=== PATIENT | female | born 1975 | race Caucasian/White ===

== ENCOUNTER 2021-06-24 09:12 | Outpatient (REF) | payer OTHER, SELFPAY ==
[2021-06-24 11:41] LABS: Appearance Urine HAZY; Color Urine YELLOW; Glucose Urine UA NEG (NEG); Leukocyte Esterase Urine NEG (NEG); Nitrite Urine NEG (NEG); Urine Blood TRACE (NEG); Urine Ketones NEG (NEG); Urine Protein NEG (NEG-TRACE)
[2021-06-24 11:51] LABS: Estimated Average Glucose 103 mg/dL; Hemoglobin A1c % 5.2 %
[2021-06-24 11:57] LABS: Hematocrit 38.7 % (37.0-47.0); Hemoglobin 12.3 g/dl (12.0-16.0); Mean Corpuscular HGB Conc 31.8 g/dl (31.0-35.0); Mean Corpuscular Hemoglobin 27.6 pg (27.0-33.0); Mean Platelet Volume 10.7 fL (9.4-12.3); Platelet Count 205 X10*3/uL (160-400); Red Blood Count 4.45 X10*6/uL (4.20-5.50); Red Cell Distribution Width 14.1 % (11.0-16.0); White Blood Count 5.7 X10*3/uL (4.8-10.8)
[2021-06-24 12:10] LABS: Alanine Aminotransferase 17 U/L (0-31); Albumin Level 4.2 g/dL (3.5-5.0); Alkaline Phosphatase 69 U/L (39-117); Anion Gap 15 (12-20); Aspartate Amino Transferase 16 U/L (5-31); Bilirubin Total 0.6 mg/dL (0.0-1.0); Blood Urea Nitrogen 13 mg/dL (9-16); Carbon Dioxide 24 mmol/L (22-29); Chloride 104 mmol/L (96-108); Cholesterol 148 mg/dL; Estimated Glomerular Filt Rate > 60; Glucose Fasting 127 mg/dL (60-99); HDL Cholesterol 46 mg/dL; LDL Cholesterol Calculated 78 mg/dl; Potassium 4.2 mmol/L (3.3-5.1); Sodium 139 mmol/L (135-145); Total Protein 7.3 g/dL (6.5-8.0); Triglycerides 120 mg/dL
[2021-06-24 12:47] LABS: Mucus Urine 2+ /LPF; Squamous Epithelial Cell Urine 2+ /LPF
[2021-06-24 12:48] LABS: WBC Urine 0 /HPF (0-4)
== END 2021-06-24 09:13 | disposition home or self-care (01) ==
LOC: HO.HMGCLDS 09:12
PROVIDERS: PCP Internal Medicine; Visit Provider Internal Medicine
DX: Z00.00 Encounter for general adult medical examination without abnormal findings (principal); R73.9 Hyperglycemia, unspecified
CPT/HCPCS: 36415; 80053; 80061; 81001; 83036; 84443; 84481; 85027

== ENCOUNTER → 2021-11-24 11:00 | Outpatient (REF) | payer OTHER, SELFPAY | LOC: HO.SL 11:00 | PROVIDERS: PCP Internal Medicine; Visit Provider Nurse Practitioner Family | DX: G47.30 Sleep apnea, unspecified (principal); R40.0 Somnolence; R06.83 Snoring | CPT/HCPCS: 95806 ==

== ENCOUNTER 2021-12-26 11:55 | Outpatient (REF) | payer OTHER, SELFPAY ==
[2021-12-26 14:16] LABS: Estimated Average Glucose 111 mg/dL; Hemoglobin A1c % 5.5 %
[2021-12-26 14:17] LABS: Alanine Aminotransferase 16 U/L (0-31); Albumin Level 4.3 g/dL (3.5-5.0); Alkaline Phosphatase 77 U/L (39-117); Anion Gap 15 (12-20); Aspartate Amino Transferase 19 U/L (5-31); Bilirubin Total 0.5 mg/dL (0.0-1.0); Blood Urea Nitrogen 12 mg/dL (9-16); Calcium 8.9 mg/dL (8.4-10.2); Carbon Dioxide 24 mmol/L (22-29); Chloride 105 mmol/L (96-108); Estimated Glomerular Filt Rate > 60; Glucose Random 87 mg/dL (60-115); Potassium 4.4 mmol/L (3.3-5.1); Sodium 140 mmol/L (135-145); Total Protein 7.5 g/dL (6.5-8.0)
== END 2021-12-26 11:56 | disposition home or self-care (01) ==
LOC: HO.HMGCLDS 11:55
PROVIDERS: PCP Internal Medicine; Visit Provider Internal Medicine
DX: E28.2 Polycystic ovarian syndrome (principal); R73.9 Hyperglycemia, unspecified
CPT/HCPCS: 36415; 80053; 83036

== ENCOUNTER → 2022-02-17 20:30 | Outpatient (REF) | payer OTHER, SELFPAY | LOC: HO.SL 20:30 | PROVIDERS: PCP Internal Medicine; Visit Provider Nurse Practitioner Family | DX: G47.30 Sleep apnea, unspecified (principal); R40.0 Somnolence; E66.9 Obesity, unspecified; R73.9 Hyperglycemia, unspecified | CPT/HCPCS: 95810 ==

== ENCOUNTER → 2022-04-17 19:30 | Outpatient (REF) | payer OTHER, SELFPAY | LOC: HO.SL 19:30 | PROVIDERS: PCP Internal Medicine; Visit Provider Nurse Practitioner Family | DX: Z13.89 Encounter for screening for other disorder (principal) ==

== ENCOUNTER 2022-06-24 09:16 | Outpatient (REF) | payer OTHER, SELFPAY ==
[2022-06-24 11:39] LABS: Appearance Urine Cloudy; Color Urine Orange; Glucose Urine UA Negative (Negative); Leukocyte Esterase Urine Small (1+) (Negative); Nitrite Urine Negative (Negative); PH 5.5 (5.0-9.0); Specific Gravity - Urine 1.025 (1.005-1.025); UMIC TRIGGER UA YES; Urine Blood Large (3+) (Negative); Urine Ketones Negative (Negative); Urine Protein 30 (1+) mg/dL (Neg-Trace)
[2022-06-24 11:48] LABS: Estimated Average Glucose 126 mg/dL
[2022-06-24 11:52] LABS: Bacteria Urine None Seen (None Seen); Hyaline Casts Urine 0-2 /LPF (0-2); RBC Urine >20 /HPF (0-2); Squamous Epithelial Cell Urine 0-2 /HPF (0-2)
[2022-06-24 12:18] LABS: Alanine Aminotransferase 32 U/L (0-31); Albumin Level 4.2 g/dL (3.5-5.0); Alkaline Phosphatase 74 U/L (39-117); Anion Gap 15 (12-20); Aspartate Amino Transferase 31 U/L (5-31); Bilirubin Total 0.7 mg/dL (0.0-1.0); Blood Urea Nitrogen 15 mg/dL (9-16); Calcium 8.7 mg/dL (8.4-10.2); Carbon Dioxide 23 mmol/L (22-29); Chloride 107 mmol/L (96-108); Cholesterol 148 mg/dL; Estimated Glomerular Filt Rate > 60; Glucose Fasting 145 mg/dL (60-99); HDL Cholesterol 40 mg/dL; LDL Cholesterol Calculated 83 mg/dl; Potassium 4.3 mmol/L (3.3-5.1); Sodium 141 mmol/L (135-145); TSH reflex Free T4 2.03 uIU/mL (0.32-4.0); Triglycerides 128 mg/dL
== END 2022-06-24 09:17 | disposition home or self-care (01) ==
LOC: HO.HMGCLDS 09:16
PROVIDERS: PCP Internal Medicine; Visit Provider Internal Medicine
DX: Z00.00 Encounter for general adult medical examination without abnormal findings (principal); R73.9 Hyperglycemia, unspecified; G47.30 Sleep apnea, unspecified; F41.9 Anxiety disorder, unspecified
CPT/HCPCS: 36415; 80053; 80061; 81001; 82306; 83036; 84443

== ENCOUNTER 2022-06-27 12:23 | Outpatient (REF) | payer OTHER, SELFPAY ==
[2022-06-27 13:42] LABS: Appearance Urine Clear; Color Urine Yellow; Glucose Urine UA Negative (Negative); Leukocyte Esterase Urine Trace (Negative); Nitrite Urine Negative (Negative); PH 5.5 (5.0-9.0); UMIC TRIGGER UACC YES; Urine Blood Moderate (2+) (Negative); Urine Ketones Negative (Negative); Urine Protein Negative (Neg-Trace)
[2022-06-27 13:44] LABS: Bacteria Urine Trace (None Seen); Hyaline Casts Urine 0-2 /LPF (0-2); WBC Urine 0-5 /HPF (0-5)
== END 2022-06-27 12:24 | disposition home or self-care (01) ==
LOC: HO.HMGCLDS 12:23
PROVIDERS: PCP Internal Medicine; Visit Provider Internal Medicine
DX: R31.29 Other microscopic hematuria (principal)
CPT/HCPCS: 81001

== ENCOUNTER 2022-07-06 11:03 | Outpatient (REF) | payer OTHER, SELFPAY ==
--- NOTE | ~2022-07-06 | US_ITS ---
EXAMINATION: US RETROPERITONEAL LIMITED (RENAL ONLY) CLINICAL INFORMATION: Other microscopic hematuria. COMPARISON: None available. TECHNIQUE: Real-time imaging of the kidneys. FINDINGS: RIGHT KIDNEY: Surgically absent. LEFT KIDNEY: 15.7 x 7.1 x 7.0 cm (SAG x AP x TRV). The kidney is normal in size, contour, and echogenicity. Renal cortical thickness is normal. No renal calculi or focal parenchymal lesions. Left renal pelviectasis without vicky hydronephrosis. US/US renal BI IMPRESSION: 1. Left renal pelviectasis without vicky hydronephrosis. 2. Right kidney is surgically absent.
== END 2022-07-06 11:04 | disposition home or self-care (01) ==
LOC: HO.HMGCX 11:03
PROVIDERS: PCP Internal Medicine; Visit Provider Internal Medicine
DX: R31.29 Other microscopic hematuria (principal)
CPT/HCPCS: 76775

== ENCOUNTER → 2022-07-28 10:57 | Outpatient (BNVA) | payer OTHER, SELFPAY | PROVIDERS: PCP Internal Medicine; Visit Provider Nurse Practitioner Family ==

== ENCOUNTER 2022-12-23 10:24 | Outpatient (AMB) | payer OTHER, SELFPAY ==
--- NOTE | 2022-12-23 10:38 | A.OFFPC_ITS ---
Vital Signs 12/23/22 10:39 Height 5 ft 3 in Weight 327 lb BMI 57.9 BP 118/68 Blood Pressure Location Rt brachial Position Sitting Pulse 90 Pulse Source Pulse Oximeter Pulse Oximetry (%) 98 Oxygen Delivery Method Room Air Intake Visit Reasons: PE Intake Note: Pt is here today for her PE Allergies Sulfa (Sulfonamide Antibiotics) Allergy (Unknown, Verified 12/23/22 10:39) rash all over body adhesive tape Allergy (Unknown, Uncoded 12/23/22 10:39) burn trent Erythromycin Allergy (Unknown, Uncoded 12/23/22 10:39) vomiting Medication List - Last Reconciled 12/23/22 by Angella Moreno MD citalopram 40 mg PO DAILY metformin ER 750 mg PO DAILY Tobacco use date assessed: 12/23/22 Dental Screening Dental Screen Date: 12/23/22 Did you have a dental visit in the last 12 months?: Yes Did you have a dental problem in the last 6 months where you did not have access to dental care?: No Was dental information given to patient?: Patient has dentist HPI PE HPI Details Pt presents for physical. She complains of nasal congestion, sore throat, green discharge, cough for 4 days. Pt used Albuterol inhaler with some relief. [facility] Medical History (Updated 12/23/22 @ 11:43 by Angella Moreno MD) Anxiety Overweight PCOS (polycystic ovarian syndrome) Sleep apnea Hyperglycemia Annual physical exam Family History Father No problems noted. Mother Breast cancer Social History Housing: House Patient Tobacco Use Status: Former Tobacco user (10 years ago ) Years Smoked: 3-4 years e-Cigarette/Vaping Use: Never Used Current occupational status: employed Cognitive needs: No Hearing needs: No Vision needs: Yes Questionnaire PHQ-9 Over the last 2 weeks, how often have you been bothered by any of the following problems? 1. Little interest or pleasure in doing things: several days 2. Feeling down, depressed, or hopeless: several days 3. Trouble falling or staying asleep, or sleeping too much: more than half the days 4. Feeling tired or having little energy: more than half the days 5. Poor appetite or overeating: several days 6. Feeling bad about yourself - or that you are a failure or have let yourself or your family down: more than half the days 7. Trouble concentrating on things, such as reading the newspaper or watching television: several days 8. Moving or speaking so slowly that other people could have noticed. Or the opposite - being so fidgety or restless that you have been moving around a lot more than usual: not at all 9. Thoughts that you would be better off or of hurting yourself in some way: not at all Total score: 10 Depression Screening Interpretation: Positive Depression Screening Done: Yes Source: Developed by Drs. Juan C Bah, Lucy Keith, Thomas Khan and colleagues, with an educational ammy from [employer]. Thrive Questionnaire Date Thrive assessed: 12/23/22 I am a: Patient What is your living situation today?: I have a steady place to live Within the past 12 months, did the food you bought not last and you didn't have the money to get more?: Never true Within the past 12 months, did you worry whether your food would run out before you got money to buy more?: Never true Do you have trouble paying for medicines?: No Do you have trouble getting transportation to medical appointments?: No Do you have trouble paying your heating and electricity bill?: No Do you have trouble taking care of your child, family member or friend?: No Do you have trouble with day-to-day activities such as bathing, preparing meals, shopping, managing finances, etc.?: No Are you currently unemployed and looking for a job?: No Are you interested in more education?: No AUDIT C Alcohol Use Questionnaire (AUDIT-C) 1. How often do you have a drink containing alcohol?: Never Total Score: 0 EFFIE-7 AMB Questionnaire EFFIE-7 Date EFFIE - 7 assessed: 12/23/22 Feeling nervous, anxious, or on edge: 1 = Several days Not being able to stop or control worryin = Several days Worrying too much about different things: 1 = Several days Trouble relaxin = Several days Being so restless that it is hard to sit still: 1 = Several days Becoming easily annoyed or irritable: 2 = More than half the days Feeling afraid as if something awful might happen: 1 = Several days Total EFFIE-7 score (0-4 normal; 5-9 mild; 10-14 moderate; 15-21 severe): 8 Source: Developed by Drs. Juan C Bah, Lucy Keith, Thomas Khan and colleagues, with an educational ammy from [employer]. Review of Systems Const All systems reviewed & are unremarkable except as noted in HPI and below Reports no additional complaints Eyes Reports no additional complaints ENT Reports no additional complaints Card Reports no additional complaints Resp Reports no additional complaints GI Reports no additional complaints Reports no additional complaints Physical exam (Primary Care) Vital Signs: Last Vital Signs Pulse 90 12/23/22 10:39 BP 118/68 12/23/22 10:39 Pulse Ox 98 12/23/22 10:39 Oxygen Delivery Method Room Air 12/23/22 10:39 BMI result Body Mass Index 57.9 Tobacco/Smoking Status: Tobacco use Status Tobacco use date assessed 12/23/22 12/23/22 10:43 Patient Tobacco Use Status Former Tobacco user (12/23/22 10:43 years ago ) e-Cigarette/Vaping Use Never Used 12/23/22 10:43 Depression Screening Interpretation: Positive Thrive Assessment: Date of Thrive Assessment Date Thrive assessed 12/23/22 12/23/22 10:43 Const General: no acute distress HENMT Head: Yes normal to inspection Ears: hearing grossly normal bilaterally General nose exam: Abnormal mucous membranes and turbinates present erythematous Face and sinus: Yes sinus tenderness Throat: Yes postnasal drainage Eyes General: appearance normal, both eyes and all related structures Neck Neck: Yes no lymphadenopathy and Yes supple Resp Effort & Inspection: normal respiratory effort Auscultation: clear to auscultation bilaterally Cardio Rhythm: regular rhythm Heart sounds: S1 normal heart sound present and S2 normal heart sound present GI Inspection: Yes normal to inspection Palpation (GI): Soft to palpation Percussion: Yes normal to percussion Auscultation: normal bowel sounds Assessment and Plan Assessment & Plan (1) Hx of colonoscopy: Comment: Lymch syndrome Dr. Granado 10/28 [facility], q 2 yrs Code(s): Z98.890 - Other specified postprocedural states (2) Normal pelvic exam: Comment: hand splitter 2022 Code(s): Z01.419 - Encounter for gynecological examination (general) (routine) without abnormal findings (3) Overweight: Code(s): E66.3 - Overweight Plan: Weight loss discussed with the patient (4) Sleep apnea: Comment: Severe degree of sleep apnea. The AHI was 106/hr and oxygen selma was 76%. Code(s): G47.30 - Sleep apnea, unspecified Plan: Continue CPAP (5) Hyperglycemia: Code(s): R73.9 - Hyperglycemia, unspecified Plan: Continue ADA diet return for fasting blood work (6) Annual physical exam: Code(s): Z00.00 - Encounter for general adult medical examination without abnormal findings Plan: Well-balanced diet regular physical activity stress management discussed with the patient. (7) Sinusitis: Code(s): J32.9 - Chronic sinusitis, unspecified Plan: Doxycycline is prescribed and supportive care discussed with the patient Orders: Orders Hemoglobin A1c 365 Days E66.3 - Overweight, R73.9 - Hyperglycemia, unspecified, Z00.00 - Encounter for general adult medical examination without abnormal findings Lipid Panel 365 Days E66.3 - Overweight, R73.9 - Hyperglycemia, unspecified, Z00.00 - Encounter for general adult medical examination without abnormal findings Complete Blood Count Auto Diff 365 Days E66.3 - Overweight, R73.9 - Hyperglycemia, unspecified, Z00.00 - Encounter for general adult medical examination without abnormal findings TSH reflex Free T4 365 Days E66.3 - Overweight, R73.9 - Hyperglycemia, unspecified, Z00.00 - Encounter for general adult medical examination without abnormal findings Comprehensive [place]. Panel Fast 365 Days E66.3 - Overweight, R73.9 - Hyperglycemia, unspecified, Z00.00 - Encounter for general adult medical examination without abnormal findings Medications: New doxycycline hyclate 100 mg PO BID 14 tabs 0RF albuterol sulfate 90 mcg/actuation 1 inh inhalation QID PRN 6.7 grams 0RF sh ortness of breath or wheezing Coding Level of Care Code Est Pt Prev Care 40-64y(24683) Diagnoses Hx of colonoscopy Z98.890 Normal pelvic exam Z01.419 Overweight E66.3 Sleep apnea G47.30 Hyperglycemia R73.9 Annual physical exam Z00.00 Sinusitis J32.9
[2022-12-23 10:39] VITALS: BP 118/68; PULSE 90; O2SAT 98; BMI 57.9
== END 2022-12-23 11:44 | disposition home or self-care (01) ==
PROVIDERS: Visit Provider Internal Medicine
DX: Z00.00 Encounter for general adult medical examination without abnormal findings (principal); Z98.890 Other specified postprocedural states; E66.3 Overweight; G47.30 Sleep apnea, unspecified; R73.9 Hyperglycemia, unspecified; J32.9 Chronic sinusitis, unspecified
CPT/HCPCS: 99396

== ENCOUNTER 2023-01-26 14:28 | Outpatient (AMB) | payer OTHER, SELFPAY ==
[2023-01-26 14:30] VITALS: BP 148/80; PULSE 86; O2SAT 99; BMI 58.5
--- NOTE | 2023-01-26 14:30 | A.OFFVIS_ITS ---
Intake Vital Signs 01/26/23 14:30 Height 5 ft 3 in Weight 330 lb 6 oz BMI 58.5 BP 148/80 H Blood Pressure Location Lt brachial Position Sitting Pulse 86 Pulse Source Pulse Oximeter Pulse Oximetry (%) 99 Oxygen Delivery Method Room Air Intake Visit Reasons: 6 mnts f/u for sleep - LVM Intake Note: Pt presents to the office today for a 6 month follow up for sleep. Pt states she is sleeping better through the night. Pt states she isnt waking up as often. Pt states it just takes a little while for her to fall asleep but she states her sleep has improved. Allergies Sulfa (Sulfonamide Antibiotics) Allergy (Unknown, Verified 01/26/23 14:32) rash all over body adhesive tape Allergy (Unknown, Uncoded 01/26/23 14:32) burn trent Erythromycin Allergy (Unknown, Uncoded 01/26/23 14:32) vomiting HPI HPI Comments History of Present Illness Details 47 y/o female patient presents for follo w up of AIYANA on CPAP. Pt reports she sleeps better with CPAP, less snoring, and rested. She wakes up refreshed, not congested since she had a new CPAP. Pt states that does not feel groggy, and less clenching her jaw. She clean her tubing and mask regularly and changes filter q 2 weeks. The CPAP compliance and therapy response (12/27/22-01/25/23) reviewed. She is on CPAP at [id number]. The usage days 100% and the average usage hours 7 hours and 38 min. The residual AHI was 0.5/hr. [facility] Medical History Anxiety Overweight PCOS (polycystic ovarian syndrome) Sleep apnea Hyperglycemia Annual physical exam Family History Father No problems noted. Mother Breast cancer (Updated 01/26/23 @ 14:32 by Roseanne Villavicencio MA) Housing: House Alcohol intake: never Patient Tobacco Use Status: Former Tobacco user (10 years ago ) Years Smoked: 3-4 years e-Cigarette/Vaping Use: Never Used Current occupational status: employed Cognitive needs: No Hearing needs: No Vision needs: Yes Review of Systems Const All systems reviewed & are unremarkable except as noted in HPI and below Physical Exam Vital Signs: Last Vital Signs Pulse 86 01/26/23 14:30 BP 148/80 H 01/26/23 14:30 Pulse Ox 99 01/26/23 14:30 Oxygen Delivery Method Room Air 01/26/23 14:30 BMI result Body Mass Index 58.5 Const General: cooperative and no acute distress Nutritional Appearance: obese Orientation/consciousness: patient oriented x3 Resp Effort & Inspection: normal respiratory effort and able to speak in complete sentences Neuro General: patient oriented x3, gait normal, moves all extremities, no focal motor deficits and CN's II-XI intact bilaterally Cognition (Neuro): normal cognition Assessment & Plan Assessment & Plan (1) Sleep apnea: Comment: Severe degree of sleep apnea. The AHI was 106/hr and oxygen selma was 76%. Code(s): G47.30 - Sleep apnea, unspecified Plan Continue to use CPAP at [id number] as patient experiences good clinical effects. Stressed compliance, use CPAP nightly and more than 4 hours. Wt reduction advised. Coding Level of Care Code Est Pt Level 3 (69006) Diagnoses Sleep apnea G47.30
== END 2023-01-26 14:47 | disposition home or self-care (01) ==
PROVIDERS: Visit Provider Nurse Practitioner Family
DX: G47.30 Sleep apnea, unspecified (principal)
CPT/HCPCS: 99213

== ENCOUNTER → 2023-01-26 14:28 | Outpatient (BNVA) | payer OTHER, SELFPAY | PROVIDERS: Visit Provider Nurse Practitioner Family ==

== ENCOUNTER 2023-02-04 09:26 | Outpatient (REF) | payer OTHER, SELFPAY ==
[2023-02-04 11:52] LABS: MANUAL DIFF FLAG NO
[2023-02-04 12:15] LABS: Basophils Absolute Auto 0.1 X10*3/uL (0.0-0.2); Basophils Percent Auto 0.9 % (0-2); Eosinophils Absolute Auto 0.2 X10*3/uL (0.0-0.4); Hematocrit 36.4 % (37.0-47.0); Hemoglobin 11.7 g/dl (12.0-16.0); Imm Gran Abs Auto 0.04 X10*3/uL (0.00-0.03); Imm Gran Pct Auto 0.7 % (0.0-0.4); Lymphocytes Absolute Auto 1.4 X10*3/uL (1.2-4.9); Lymphocytes Percent Auto 25.5 % (20-40); Mean Corpuscular HGB Conc 32.1 g/dl (31.0-35.0); Mean Corpuscular Hemoglobin 28.5 pg (27.0-33.0); Mean Corpuscular Volume 88.8 fL (80.0-98.0); Mean Platelet Volume 10.4 fL (9.4-12.3); Monocytes Absolute Auto 0.2 X10*3/uL (0.1-1.2); Monocytes Percent Auto 4.3 % (2-11); Neutrophils Absolute Auto 3.7 x10*3/uL (2.0-8.3); Neutrophils Percent Auto 65.6 % (45-73); Platelet Count 197 X10*3/uL (160-400); Red Cell Distribution Width 14.2 % (11.0-16.0); White Blood Count 5.6 X10*3/uL (4.8-10.8)
[2023-02-04 12:16] LABS: Estimated Average Glucose 137 mg/dL; Hemoglobin A1C 141.9686 umol/L; Hemoglobin A1c % 6.4 % (<6.0)
[2023-02-04 12:35] LABS: Alanine Aminotransferase 48 U/L (0-31); Alkaline Phosphatase 85 U/L (39-117); Anion Gap 13 (12-20); Aspartate Amino Transferase 88 U/L (5-31); Bilirubin Total 0.5 mg/dL (0.0-1.0); Blood Urea Nitrogen 12 mg/dL (9-16); Carbon Dioxide 26 mmol/L (22-29); Chloride 104 mmol/L (96-108); Cholesterol 151 mg/dL (<200); Estimated Glomerular Filt Rate > 60; Glucose Fasting 151 mg/dL (60-99); HDL Cholesterol 35 mg/dL (>40); LDL Cholesterol Calculated 90 mg/dL (<100); Potassium 4.2 mmol/L (3.3-5.1); Sodium 139 mmol/L (135-145); Total Protein 7.4 g/dL (6.5-8.0); Triglycerides 130 mg/dL (<150)
[2023-02-04 12:53] LABS: Creatinine Urine 141.83 mg/dL; Microalbum/Creatinine Ratio Ur 20.4 ug/mg cr (<30)
[2023-02-04 12:54] LABS: TSH reflex Free T4 2.77 uIU/mL (0.32-4.0)
== END 2023-02-04 09:27 | disposition home or self-care (01) ==
LOC: HO.HMGCLDS 09:26
PROVIDERS: PCP Internal Medicine; Visit Provider Internal Medicine
DX: Z00.00 Encounter for general adult medical examination without abnormal findings (principal); E28.2 Polycystic ovarian syndrome; R73.9 Hyperglycemia, unspecified
CPT/HCPCS: 36415; 80053; 80061; 82043; 82570; 83036; 84443; 85025

== ENCOUNTER 2024-01-14 09:54 | Outpatient (REF) | payer OTHER, SELFPAY ==
[2024-01-14 13:14] LABS: MANUAL DIFF FLAG NO
[2024-01-14 13:17] LABS: Basophils Absolute Auto 0.1 X10*3/uL (0.0-0.2); Basophils Percent Auto 0.9 % (0-2); Eosinophils Absolute Auto 0.2 X10*3/uL (0.0-0.4); Eosinophils Percent Auto 2.7 % (0-4); Hematocrit 36.3 % (37.0-47.0); Hemoglobin 11.8 g/dl (12.0-16.0); Imm Gran Abs Auto 0.02 X10*3/uL (0.00-0.03); Imm Gran Pct Auto 0.3 % (0.0-0.4); Lymphocytes Absolute Auto 2.1 X10*3/uL (1.2-4.9); Lymphocytes Percent Auto 35.9 % (20-40); Mean Corpuscular HGB Conc 32.5 g/dl (31.0-35.0); Mean Corpuscular Volume 86.2 fL (80.0-98.0); Monocytes Absolute Auto 0.2 X10*3/uL (0.1-1.2); Monocytes Percent Auto 3.2 % (2-11); Neutrophils Absolute Auto 3.3 x10*3/uL (2.0-8.3); Platelet Count 199 X10*3/uL (160-400); Red Blood Count 4.21 X10*6/uL (4.20-5.50); Red Cell Distribution Width 14.1 % (11.0-16.0); White Blood Count 5.9 X10*3/uL (4.8-10.8)
[2024-01-14 13:32] LABS: Estimated Average Glucose 160 mg/dL; Hemoglobin A1C 179.5133 umol/L; Hemoglobin A1c % 7.2 % (<6.0); Total Hemoglobin (HGBA1C) 3227.8621 umol/L
[2024-01-14 13:42] LABS: Anion Gap 13 (12-20)
[2024-01-14 13:53] LABS: Alanine Aminotransferase 67 U/L (0-31); Albumin Level 4.2 g/dL (3.5-5.0); Alkaline Phosphatase 115 U/L (39-117); Aspartate Amino Transferase 114 U/L (5-31); Bilirubin Total 0.6 mg/dL (0.0-1.0); Blood Urea Nitrogen 9 mg/dL (9-16); Calcium 9.2 mg/dL (8.4-10.2); Carbon Dioxide 25 mmol/L (22-29); Chloride 107 mmol/L (96-108); Cholesterol 186 mg/dL (<200); Estimated Glomerular Filt Rate > 60; Glucose Fasting 145 mg/dL (60-99); HDL Cholesterol 38 mg/dL (>40); LDL Cholesterol Calculated 117 mg/dL (<100); Potassium 4.2 mmol/L (3.3-5.1); Sodium 141 mmol/L (135-145); Total Protein 7.7 g/dL (6.5-8.0); Triglycerides 157 mg/dL (<150)
[2024-01-14 14:41] LABS: TSH reflex Free T4 2.53 uIU/mL (0.32-4.0)
== END 2024-01-14 09:55 | disposition home or self-care (01) ==
LOC: HO.HMGCLDS 09:54
PROVIDERS: PCP Internal Medicine; Visit Provider Internal Medicine
DX: Z00.00 Encounter for general adult medical examination without abnormal findings (principal); E66.3 Overweight; R73.9 Hyperglycemia, unspecified
CPT/HCPCS: 36415; 80053; 80061; 83036; 84443; 85025

== ENCOUNTER 2024-01-17 08:31 | Outpatient (AMB) | payer OTHER, SELFPAY ==
[2024-01-17 08:38] VITALS: BP 122/70; PULSE 70; O2SAT 97; BMI 57.0
--- NOTE | 2024-01-17 08:38 | A.OFFPC_ITS ---
Vital Signs 01/17/24 08:38 Height 5 ft 3 in Weight 322 lb BMI 57.0 BP 122/70 Blood Pressure Location Lt brachial Position Sitting Pulse 70 Pulse Source Pulse Oximeter Pulse Oximetry (%) 97 Oxygen Delivery Method Room Air Intake Visit Reasons: Annual PE Intake Note: Pt is here today for PE. Allergies Sulfa (Sulfonamide Antibiotics) Allergy (Unknown, Verified 01/17/24 08:40) rash all over body adhesive tape Allergy (Unknown, Uncoded 01/17/24 08:40) burn trent Erythromycin Allergy (Unknown, Uncoded 01/17/24 08:40) vomiting Medication List - Last Reconciled 01/17/24 by Angella Moreno MD albuterol sulfate 90 mcg/actuation 1 inh inhalation QID PRN citalopram 40 mg PO DAILY metformin ER 750 mg PO DAILY Tobacco use date assessed: 01/17/24 Dental Screening Dental Screen Date: 01/17/24 Did you have a dental visit in the last 12 months?: Yes Did you have a dental problem in the last 6 months where you did not have access to dental care?: No Was dental information given to patient?: Patient has dentist HPI Annual PE HPI Details Pt presents for PE. PFSH Medical History (Updated 01/17/24 @ 08:50 by Angella Moreno MD) Anxiety Overweight PCOS (polycystic ovarian syndrome) Sleep apnea Hyperglycemia Annual physical exam Surgical History (Updated 01/17/24 @ 08:43 by Amy Salcido [facility]) Hx of section Hx of kidney removal History of repair of ACL Family History Father No problems noted. Mother Breast cancer Social History Housing: House Alcohol intake: never Patient Tobacco Use Status: Former Tobacco user (10 years ago ) Years Smoked: 3-4 years e-Cigarette/Vaping Use: Never Used service: No Current occupational status: employed Cognitive needs: No Hearing needs: No Vision needs: Yes Questionnaire PHQ-9 Over the last 2 weeks, how often have you been bothered by any of the following problems? 1. Little interest or pleasure in doing things: several days 2. Feeling down, depressed, or hopeless: several days 3. Trouble falling or staying asleep, or sleeping too much: several days 4. Feeling tired or having little energy: several days 5. Poor appetite or overeating: several days 6. Feeling bad about yourself - or that you are a failure or have let yourself or your family down: several days 7. Trouble concentrating on things, such as reading the newspaper or watching television: not at all 8. Moving or speaking so slowly that other people could have noticed. Or the opposite - being so fidgety or restless that you have been moving around a lot more than usual: not at all 9. Thoughts that you would be better off or of hurting yourself in some way: not at all Total score: 6 Depression Screening Interpretation: Negative Depression Screening Done: Yes [id number] - PHQ-9 Billing: Yes Source: Developed by Drs. Juan C Bah, Lucy Keith, Thomas Khan and colleagues, with an educational ammy from [employer]. Thrive Questionnaire Date Thrive assessed: 01/17/24 I am a: Patient What is your living situation today?: I have a steady place to live Within the past 12 months, did the food you bought not last and you didn't have the money to get more?: Never true Within the past 12 months, did you worry whether your food would run out before you got money to buy more?: Never true Do you have trouble paying for medicines?: No Do you have trouble getting transportation to medical appointments?: No Do you have trouble paying your heating and electricity bill?: No Do you have trouble taking care of your child, family member or friend?: No Do you have trouble with day-to-day activities such as bathing, preparing meals, shopping, managing finances, etc.?: No Are you currently unemployed and looking for a job?: No Are you interested in more education?: No Please select the resources that you would like help with: None Currently or been in a relationship where the following occur: No concerns repo rted THRIVE Score: 0 AUDIT C Alcohol Use Questionnaire (AUDIT-C) 1. How often do you have a drink containing alcohol?: Never 3. How often do you have six or more drinks on one occasion?: Never Total Score: 0 EFFIE-7 AMB Questionnaire EFFIE-7 Date EFFIE - 7 assessed: 01/17/24 Feeling nervous, anxious, or on edge: 1 = Several days Not being able to stop or control worryin = Several days Worrying too much about different things: 1 = Several days Trouble relaxin = Several days Being so restless that it is hard to sit still: 0 = Not at all Becoming easily annoyed or irritable: 1 = Several days Feeling afraid as if something awful might happen: 0 = Not at all Total EFFIE-7 score (0-4 normal; 5-9 mild; 10-14 moderate; 15-21 severe): 5 Source: Developed by Drs. Juan C Bah, Lucy Keith, Thomas Khan and colleagues, with an educational ammy from [employer]. EFFIE-7 Assessment Billing EFFIE-7 Assessment Tool: EFFIE-7 Assessment 37168 Review of Systems Const All systems reviewed & are unremarkable except as noted in HPI and below Eyes Reports no additional complaints ENT Reports no additional complaints Card Reports no additional complaints Resp Reports no additional complaints GI Reports no additional complaints Reports no additional complaints Physical exam (Primary Care) Vital Signs: Last Vital Signs Pulse 70 01/17/24 08:38 BP 122/70 01/17/24 08:38 Pulse Ox 97 01/17/24 08:38 Oxygen Delivery Method Room Air 01/17/24 08:38 BMI result Body Mass Index 57.0 Tobacco/Smoking Status: Tobacco use Status Tobacco use date assessed 01/17/24 01/17/24 08:44 Patient Tobacco Use Status Former Tobacco user (01/17/24 08:44 years ago ) e-Cigarette/Vaping Use Never Used 01/17/24 08:44 PHQ-9: PHQ-9 Score PHQ-9: Total score 6 01/17/24 08:44 Depression Screening Interpretation: Negative Thrive Assessment: Date of Thrive Assessment Date Thrive assessed 01/17/24 01/17/24 08:44 Currently or been in a relationship where the following occur: No concerns reported Const General: no acute distress HENMT Head: Yes normal to inspection Ears: hearing grossly normal bilaterally General nose exam: Normal external nose present Face and sinus: Yes normal facial exam Throat: Yes posterior oropharynx normal Eyes General: appearance normal, both eyes and all related structures Neck Neck: Yes no lymphadenopathy and Yes supple Resp Effort & Inspection: normal respiratory effort Auscultation: clear to auscultation bilaterally Cardio Rhythm: regular rhythm Heart sounds: S1 normal heart sound present and S2 normal heart sound present GI Inspection: Yes normal to inspection Palpation (GI): Soft to palpation Percussion: Yes normal to percussion Auscultation: normal bowel sounds Coding Level of Care Code Est Pt Prev Care 40-64y(85137) Diagnoses Hx of colonoscopy Z98.890 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 Code(s): Z15.09 - Genetic susceptibility to other malignant neoplasm Category: Medical Plan: f/u with oncology (3) Hyperglycemia: Code(s): R73.9 - Hyperglycemia, unspecified Category: Medical Plan: A1C is 7.3, ADA diet, regular exercise, weight loss discussed, increase Metformi n to 1500 mg, f/u in 3 months (4) Annual physical exam: Code(s): Z00.00 - Encounter for general adult medical examination without abnormal findi ngs Category: Medical Plan: well baalnced diet, regular exercise discussed, pt is up to date with mammogram, colonoscopy and pap (5) Hx of screening mammography: Comment: 2023 Code(s): Z92.89 - Personal history of other medical treatment Category: Medical Plan: up to date Orders: Orders Comprehensive [place]. Panel Fast 3 Months R73.9 - Hyperglycemia, unspecified, Z00.00 - Encounter for general adult medical examination without abnormal findings Microalbumin, Random (w Creat) 3 Months R73.9 - Hyperglycemia, unspecified, Z00.00 - Encounter for general adult medical examination without abnormal findings TSH reflex Free T4 3 Months R73.9 - Hyperglycemia, unspecified, Z00.00 - Encounter for general adult medical examination without abnormal findings Hemoglobin A1c 3 Months R73.9 - Hyperglycemia, unspecified, Z00.00 - Encounter for general adult medical examination without abnormal findings Lipid Panel 3 Months R73.9 - Hyperglycemia, unspecified, Z00.00 - Encounter for general adult medical examination without abnormal findings Complete Blood Count Auto Diff 3 Months R73.9 - Hyperglycemia, unspecified, Z00.00 - Encounter for general adult medical examination without abnormal findings Medications: Refilled metformin ER 750 mg PO DAILY 180 tabs 3RF
== END 2024-01-17 09:03 | disposition home or self-care (01) ==
PROVIDERS: PCP Internal Medicine; Visit Provider Internal Medicine
DX: Z98.890 Other specified postprocedural states (principal); Z15.09 Genetic susceptibility to other malignant neoplasm; R73.9 Hyperglycemia, unspecified; Z00.00 Encounter for general adult medical examination without abnormal findings; Z92.89 Personal history of other medical treatment

== ENCOUNTER → 2024-01-17 08:31 | Outpatient (BNVA) | payer OTHER, SELFPAY | PROVIDERS: PCP Internal Medicine; Visit Provider Internal Medicine | DX: Z00.00 Encounter for general adult medical examination without abnormal findings (principal); R73.9 Hyperglycemia, unspecified; Z15.09 Genetic susceptibility to other malignant neoplasm | CPT/HCPCS: 96127 ==

== ENCOUNTER 2024-02-01 15:20 | Outpatient (AMB) | payer OTHER, SELFPAY ==
--- NOTE | 2024-02-01 15:21 | MHC.OFFVIS ---
Vital Signs 02/01/24 15:22 Height 5 ft 3 in Weight 322 lb BMI 57.0 Intake Visit Reasons: 1 yr f/u -AIYANA Intake Note: Patient presents for follow up Allergies Sulfa (Sulfonamide Antibiotics) Allergy (Unknown, Verified 02/01/24 15:27) rash all over body adhesive tape Allergy (Unknown, Uncoded 02/01/24 15:27) burn trent Erythromycin Allergy (Unknown, Uncoded 02/01/24 15:27) vomiting HPI Comments Details: 47 y/o female patient presents for follow up of AIYANA on CPAP. Pt reports she sleeps better with CPAP, less snoring, and rested. She wakes up refreshed, congested at times depends on the weather. Pt states that does not feel groggy, and less clenching her jaw. She clean her tubing and mask regularly and changes filter q 2 weeks. The CPAP compliance and therapy response (11/03/23-01/30/2024) reviewed. She is on CPAP at [id number]. The usage days 100% and the average usage hours 7 hours and 31 min. The residual AHI was 0.6/hr. Restless leg syndrome, but usually able to fall asleep in about 20 min. Gets up 1-2x a night. A1c is 7.1 PcP increased Metformin to 1500mg PO daily. Mood is good sometimes anxious when kids get sick. Good support network locally with family and is looking for a therapist. 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 [facility] Medical History Anxiety Overweight PCOS (polycystic ovarian syndrome) Sleep apnea Hyperglycemia Annual physical exam Surgical History Hx of section Hx of kidney removal History of repair of ACL Family History Father No problems noted. Mother Breast cancer Social History Housing: House Alcohol intake: never Patient Tobacco Use Status: Former Tobacco user (10 years ago ) Years Smoked: 3-4 years e-Cigarette/Vaping Use: Never Used service: No Current occupational status: employed Cognitive needs: No Hearing needs: No Vision needs: Yes Review of Systems Const All systems reviewed & are unremarkable except as noted in HPI and below ENT Reports Normal hearing present Neuro Reports Normal hearing present and Reports Abnormal speech present Physical Exam Vital Signs: BMI result Body Mass Index 57.0 Const General: cooperative, comfortable and no acute distress Nutritional Appearance: obese (BMI 54) morbidly obese Orientation/consciousness: patient oriented x3 Eyes Pupils: Equal, round and reactive pupils present Resp Effort & Inspection: normal respiratory effort and able to speak in complete sentences Neuro General: patient oriented x3 Cranial nerves: Yes CN's II-XII intact bilaterally, Yes Facial sensation intact/muscles of mastication intact, Yes Equal, round and reactive pupils present, Yes Normal accommodation reflex present, Yes Nystagmus not present, Yes Normal facial strength present, Yes Midline tongue present, Yes Symmetric palate elevation present, Yes Normal hearing present, Yes Ability to bilaterally rotate head present and Yes Ability to bilaterally elevate shoulders present Cognition (Neuro): normal cognition Speech: Abnormal speech present Gait exam (Neuro): Normal gait present Motor exam (neuro): 5/5 motor strength present throughout, Pronator motor function not present and Normal motor muscle tone present throughout Deep tendon reflexes (DTR's): Right triceps reflex intensity grade: 2+, Left triceps reflex intensity grade: 2+, Rt Biceps (C5, C6): 2+, Left biceps reflex intensity grade: 2+, Right brachioradialis reflex intensity grade: 2+, Left brachioradialis reflex intensity grade: 2+, Right patellar reflex intensity grade: 2+ and Left patellar reflex intensity grade: 2+ Coordination: [id number] test normal Results Reviewed Results Reviewed: October 2023 to Jan 2024 CPAP compliance >4 hours average 100%, Average hours per night 7hours and 31 min Auto Set -Pressures [id number], Leaks / min max 6.4, AHI is 0.6 Assessment & Plan Assessment & Plan (1) Anxiety: Code(s): F41.9 - Anxiety disorder, unspecified Category: Medical (2) Overweight: Code(s): E66.3 - Overweight Category: Medical (3) Sleep apnea: Comment: Severe degree of sleep apnea. The AHI was 106/hr and oxygen selma was 76%. Code(s): G47.30 - Sleep apnea, unspecified Category: Medical Qualifiers: Sleep apnea type: obstructive Qualified Code(s): G47.33 - Obstructive sleep apnea (adult) (pediatric) Plan Patient is advised to use CPAP daily and even when she is napping. BMI is 54 Encouraged patient to engage in daily exercise for weight reduction. Fish Tender/Fire Suppression Captain referral if interested in dietary caloric intake and meal planning. DASH Diet for Hypertension, per [employer] Association #1 modifiable risk factor to prevent heart attacks is blood pressure control. Refer to: www.https//[employer].diet Mediterranean Diet- Cardiovascular Risk reduction, weight loss, and control of Type 2 diabetes mellitus. Blood Glucose Monitoring, A1C control for prevention of diabetes, nephropathy, neuropathy, retinopathy. Coding Level of Care Code Est Pt Level 3 (64475) Diagnoses Anxiety F41.9 Overweight E66.3 Obstructive sleep apnea syndrome G47.33 Sleep apnea type: obstructive
[2024-02-01 15:22] VITALS: BMI 57.0
== END 2024-02-01 15:51 | disposition home or self-care (01) ==
PROVIDERS: Absent Provider Psychiatry & Neurology Neurology; PCP Internal Medicine; Visit Provider Physician Assistant Medical
DX: G47.33 Obstructive sleep apnea (adult) (pediatric) (principal); F41.9 Anxiety disorder, unspecified; E66.3 Overweight
CPT/HCPCS: 99213

== ENCOUNTER → 2024-02-01 15:20 | Outpatient (BNVA) | payer OTHER, SELFPAY | PROVIDERS: Absent Provider Psychiatry & Neurology Neurology; PCP Internal Medicine; Visit Provider Physician Assistant Medical ==

== ENCOUNTER 2024-04-20 08:06 | Outpatient (REF) | payer OTHER, SELFPAY ==
--- OUTSIDE RECORDS SUMMARY | 2024-04-20 08:10 | XMS_ITS | Continuity of Care Document ---
Author Organization [facility] ter Address [address] [place] [id number]- Care Team Providers Care Manager Creative Name Role Phone Angella Moreno MD Primary Care Physician [phone] [id number] Date(s): 04/15/24 - 04/16/[address] [address]- Encounter Diagnosis Abdominal pain(Final) - 04/16/24 Discharge Disposition: A-D/C Home Attending Physician: Zan Patterson MD Admitting Physician: Zan Patterson MD Referring Physician: Not on Staff, Referring MD Encounter Type: Disch ES Allergies, Adverse Reactions, Alerts Substance Criticality Severity Reaction Reaction Severity Status erythromycin Active Bactrim Active Adhesive Bandage Act smiley Medications citalopram 40 mg oral tablet 90 each, TAKE 1 TABLET BY MOUTH EVERY DAY, 0 Refills, 03/12/22 2:02:00 PM EST, Partial fill upon patient request if the prescription is for a schedule II opioid drug. Start Date: 03/12/22 Status: Ordered Repeat number: 1 famotidine 20 mg oral tablet 20 mg, 1, tablet, By Mouth, 2 times a day, # 180 tablet, Refills 0, Tot. Refills 0, Maintenance, 04/16/24 12:12:00 AM EST, Route to Pharmacy Electronically, [facility]/pharmacy #[id number], Partial fill upon patient request if the prescription is for a schedule II opioid drug., 160, cm, 04/15/24 21:57:00 EST, Height, 143.5, kg, 04/15/24 21:57:00 EST, Dry Weight Start Date: 04/16/24 Status: Ordered Quantity: 180.0 Unit: tablet Repeat number: 1 metFORMIN 750 mg oral tablet, extended release 1 tablet = 750 mg, By Mouth, Daily, # 30 tablet, 0 Refills, Maintenance, 10/21/23 1:55:00 PM EDT, ERTablet, Partial fill upon patient request if the prescription is for a schedule II opioid drug. Start Date: 10/21/23 Status: Ordered Quantity: 30.0 Unit: tablet Repeat number: 1 Problem List Condition Confirmation Course Effective Dates Status Health St atus Informant Elderly multigravida Confirmed Active Deep vein thrombosis Confirmed Active Depression Confirmed Active Female infertility associated with anovulation Confirmed Active Gestational diabetes Confirmed Active History of DVT (deep vein thrombosis) Confirmed Active Hirsutism Confirmed Active Adams syndrome Confirmed Active Obesity, Class III, BMI 40-49.9 (morbid obesity) Confirmed Active PCOS (polycystic ovarian syndrome) Confirmed Active Severe obesity Confirmed Active Sleep apnea Confirmed Active Results Radiology Reports * Exam Date Time Procedure Performing Provider Status 04/15/24 11:[address] Abd/Pelvis W/ IV Contrast Only Stup ak , Pawan; Auth (Verified) Notes: (CT Abd/Pelvis W/ IV Contrast Only) Reason For Exam: LLQ abdominal pain;Other: RESULT: CT Abd/Pelvis W/ IV Contrast Only CT Abd/Pelvis W/ IV Contrast Only Hx of Present Illness: onset 2 hours ago, bilateral lower knifelike abd pain rad to back, no fever chills, nausea w o vomiting diarrhea, no dysuria, LMP now, no vag discharge,; Reason: Other:; LLQ abdominal pain; Clinical Question(s): Diverticulitis; Order Comment: TECHNIQUE: Spiral CT through the abdomen and pelvis with IV contrast formatted in 3 planes. 100 cc of Isovue 300 was administered intravenously. This study was performed without oral contrast. Weight-based protocol using automatic tube modulation was used to optimize exposure parameters. CTDIvol Body: 37.80 mGy, DLP Body: 2173 mGy*cm. COMPARISON: None. FINDINGS: Audiovisual Aids Technician View Findings, Lines and Tubes: None. Visualized Chest: Lung bases are clear. No pleural effusion. The heart is normal in size. No pericardial effusion. Diaphragm: Normal. Liver: Hepatomegaly measuring 24.7 cm craniocaudally. No focal lesions seen. Gallbladder: No CT evidence of gallbladder pathology. Bile ducts: No biliary ductal dilation. Spleen: Splenomegaly measuring 16.5 cm in long axis. Pancreas: Normal. Adrenal glands: Normal. Kidneys and ureters: Solitary left kidney. No hydronephrosis, stones, or suspicious masses. A subcentimeter hypodensity in the lower pole is too small to characterize by CT. Bladder: Normal. Reproductive organs: Subcentimeter calcification in the uterus, which may represent a degenerated fibroid. Stomach, small bowel, and large bowel: Normal. Appendix: Normal. Peritoneum and retroperitoneum: No ascites or pneumoperitoneum. No omental or mesenteric lesions. Lymph nodes: No enlarged lymph nodes. Blood vessels: No aneurysm. No evidence of venous thrombosis. Abdominal and pelvic wall: Sclerotic changes in sacroiliac joints, could be sequela of chronic sacroiliitis. Scattered sclerotic lesions in the iliac bones, likely bone islands. Bones: No acute abnormality. Multilevel degenerative disc disease in the visualized spine, most significant at L4-L5 and L5-S1. IMPRESSION: Hepatosplenomegaly. Solitary left kidney. WSN: [id number] Ordering Physician: Zan Patterson Dictated By: Yesi Lopez MD Dictated Date/Time: 04/15/24 11:58 p Reviewed By: Yesi Lopez MD Signed By: Yesi Lopez MD Signed Date/Time: 04/15/24 11:58 pm Transcribed By: SIMEON Transcribed Date/Time: 04/15/24 11:52 pm Vital Signs Most recent to oldest [Reference Range]: 1 2 3 Height 160 cm (04/15/24 9:57 PM) Weight 143.5 kg (04/15/24 9:57 PM) Oxygen Saturation [94-100 %] 96 % (04/16/24 12:00 AM) 96 % (04/15/24 10:59 PM) 94 % (04/15/24 9:57 PM) Pulse Rate [55-90 bpm] 87 bpm (04/16/24 12:00 AM) 87 bpm (04/15/24 10:59 PM) 95 bpm *H* (04/15/24 9:57 PM) Body Mass Index [18.5-24.99 kg/m2] 56.05 kg/m2 *>HHI* (04/15/24 9:57 PM) Blood Pressure [90-138/55-84 mm Hg] 131/68mm Hg (04/16/24 12:00 AM) 131/68mm Hg (04/15/24 10:59 PM) 151/82mm Hg *H* (04/15/24 9:57 PM) Respiratory Rate [16-30 br/min] 22 br/min (04/16/24 12:00 AM) 22 br/min (04/15/24 10:59 PM) 22 br/min (04/15/24 9:57 PM) Temperature [96.8-100.4 DegF] 98.2 DegF (04/16/24 12:00 AM) 98.4 DegF (04/15/24 10:59 PM) 98.4 DegF (04/15/24 9:57 PM) Mode of Delivery (Oxygen) Room air (04/16/24 12:00 AM) Room air (04/15/24 10:59 PM) Room air (04/15/24 9:57 PM) Temperature Route Oral (04/16/24 12:00 AM) Oral (04/15/24 10:59 PM) Oral (04/15/24 9:57 PM) Dry Weight 143.5 kg (04/15/24 9:57 PM) Weight Obtained Via Standing scale (04/15/24 9:57 PM) Dry Weight Obtained Via Standing scale (04/15/24 9:57 PM) Social History Social History Type Response Smoking Status Former smoker entered on: 03/09/14 Sex Sex Representation Female (finding) Note * Leonardo PARKER, Zan: PERFORM Event Display: Patient Education Leaflets Authored Date: [id number] Unknown Causes of Abdominal Pain (Adult) ?? [id number] Unknown Causes of Abdominal Pain (Adult) The exact cause of your belly (abdominal) pain is not clear. Your exam and tests don't suggest a dangerous cause at this time. This does not mean that this is something to worry about. Everyone likesto know the exact cause of the problem. But sometimes with belly pain, there is no clear-cut cause,and this could be a good thing. Your symptoms can be treated, and you should feel better.?? Your condition does not seem serious now. But sometimes the signs of a serious problem may take more time to appear. For this reason,??it's important for you to watch for any new symptoms, problems,??or if your condition gets worse. Over the next few days, the abdominal pain may come and go. Or it may be constant. Other common symptoms can include nausea and vomiting. Sometimes it can be difficult to tell if you feel nauseous. You may just feel bad and not connect that feeling to nausea. Constipation, diarrhea, and a fever maygo along with the pain. The pain may continue even if treated correctly over the following days. Depending on how things go, sometimes the cause can become clear and you may need more??or different treatment. You may also need other evaluations, medicines, or tests. Home care Your healthcare provider may prescribe medicine for pain, symptoms, or an infection. ??Follow the healthcare provider's instructions for taking these medicines. General care ??? Rest as much as you can until your next exam. No strenuous activities. ??? Try to not do anything that may have caused your symptoms. This might be not taking any medicines unless otherwise directed by your healthcare provider. It might be not eating certain foods or doing certain activities. ??? Find positions that ease discomfort. A small pillow placed on your belly may help relieve pain. ??? Something warm on your belly, such as a heating pad, may help, but be careful not to burn yourself. Diet ??? Don???t??force yourself to eat, especially if having cramps, vomiting, or diarrhea. ??? Water is important so you don't get dehydrated. Soup may also be good. Sports drinks may also help, especially if they are not too acidic. Don't drink sugary drinks as this can make things worse. Take liquids in small amounts. Don???t??guzzle them. ??? Caffeine sometimes makes the pain and cramping worse. ??? Don???t take??dairy products if you have vomiting or diarrhea. ??? Don't eat large amounts at a time. Eat several small meals during the day instead of 2 or 3 larger meals. Wait a few minutesbetween bites. ??? Eat a diet low in fiber (called a low-residue diet). Foods allowed include refined breads, white rice, fruit and vegetable juices without pulp, tender meats. These foods will pass more easily through the intestine. ??? Don???t have??whole-grain foods, whole fruits and vegetables,meats, seeds, and nuts, fried or fatty foods, dairy, alcohol and spicy foods until your symptoms goaway. ?? Follow-up care Follow up with your healthcare provider, or as advised, if your pain does not begin to improve in the next 24 hours. ?? Call 911 Call?? 911 if any of these occur: ??? Trouble breathing ??? Confusion ??? Fainting or loss of consciousness ??? Rapid heart rate ??? Seizure ?? When to get medical advice Call your healthcare provider right away if any of these occur: ??? Pain gets worse or moves to theright lower abdomen ??? Vomiting or diarrhea that is new or gets worse ??? Swelling of the abdomen ??? Unable to pass stool for more than??3 days ??? Fever of 100.4??F (38??C) or higher, or as directed by your healthcare provider ??? Blood in vomit or bowel movements (dark red or black color) ??? Ye llow color of eyes and skin (jaundice) ??? Weakness, dizziness ??? Chest, arm, back, neck, or jaw pain ??? Can't keep down medicines, liquids, or water because of too much vomiting ??? If you have a vagina: unexpected vaginal bleeding or missed period ?? Last Reviewed Date: 2023 ?? [id number] [employer]. All rights reserved. This information is not intended as a substitute for professional medical care. Always follow your healthcare professional's instructions. ?? Patient Care team information Care Team Personnel Name: Angella Moreno MD Position: [facility] Physician - Primary Care Member Role: PCP Address: [address] [place] [address]- Telecom: Care Team Related Persons Name: HANS HERNANDEZ Name: JAYRO BREAUX Insurance Providers Guarantor name: VALENTIN NAMITA Health Plan Information #: 1 Payer: [facility] Member Number: [id number] Policy Number: NA Group Number: [id number] Health Plan Information #: 2 Payer: [facility] Member Number: [id number] Policy Number: NA Group Number: [id number]
[2024-04-20 10:15] LABS: MANUAL DIFF FLAG NO
[2024-04-20 10:27] LABS: Basophils Absolute Auto 0.1 X10*3/uL (0.0-0.2); Basophils Percent Auto 0.7 % (0-2); Eosinophils Absolute Auto 0.2 X10*3/uL (0.0-0.4); Eosinophils Percent Auto 2.6 % (0-4); Hematocrit 37.6 % (37.0-47.0); Hemoglobin 12.4 g/dl (12.0-16.0); Imm Gran Abs Auto 0.04 X10*3/uL (0.00-0.03); Imm Gran Pct Auto 0.6 % (0.0-0.4); Lymphocytes Absolute Auto 2.3 X10*3/uL (1.2-4.9); Lymphocytes Percent Auto 33.1 % (20-40); Mean Corpuscular Hemoglobin 28.2 pg (27.0-33.0); Mean Corpuscular Volume 85.5 fL (80.0-98.0); Mean Platelet Volume 9.9 fL (9.4-12.3); Monocytes Absolute Auto 0.2 X10*3/uL (0.1-1.2); Monocytes Percent Auto 3.3 % (2-11); Neutrophils Absolute Auto 4.1 x10*3/uL (2.0-8.3); Neutrophils Percent Auto 59.7 % (45-73); Platelet Count 222 X10*3/uL (160-400); Red Cell Distribution Width 14.1 % (11.0-16.0); White Blood Count 6.9 X10*3/uL (4.8-10.8)
[2024-04-20 10:28] LABS: Estimated Average Glucose 123 mg/dL; Hemoglobin A1C 132.7721 umol/L; Hemoglobin A1c % 5.9 % (<6.0); Total Hemoglobin (HGBA1C) 3222.0456 umol/L
[2024-04-20 10:47] LABS: Alanine Aminotransferase 49 U/L (0-31); Albumin Level 4.2 g/dL (3.5-5.0); Alkaline Phosphatase 125 U/L (39-117); Anion Gap 14 (12-20); Aspartate Amino Transferase 50 U/L (5-31); Bilirubin Total 0.5 mg/dL (0.0-1.0); Blood Urea Nitrogen 13 mg/dL (9-16); Calcium 9.3 mg/dL (8.4-10.2); Carbon Dioxide 23 mmol/L (22-29); Chloride 106 mmol/L (96-108); Cholesterol 174 mg/dL (<200); Estimated Glomerular Filt Rate > 60; Glucose Fasting 134 mg/dL (60-99); HDL Cholesterol 39 mg/dL (>40); LDL Cholesterol Calculated 108 mg/dL (<100); Potassium 3.8 mmol/L (3.3-5.1); Sodium 139 mmol/L (135-145); Triglycerides 139 mg/dL (<150)
[2024-04-20 10:51] LABS: Creatinine Urine 91.41 mg/dL; Microalbum/Creatinine Ratio Ur 13.1 ug/mg cr (<30)
[2024-04-20 11:02] LABS: TSH reflex Free T4 4.22 uIU/mL (0.32-4.0)
[2024-04-20 11:41] LABS: Free T4 (Free Thyroxine) 1.02 ng/dL (0.71-1.85)
== END 2024-04-20 08:07 | disposition home or self-care (01) ==
LOC: HO.HMGCLDS 08:06
PROVIDERS: PCP Internal Medicine; Visit Provider Internal Medicine
DX: Z00.00 Encounter for general adult medical examination without abnormal findings (principal); R73.9 Hyperglycemia, unspecified; Z13.6 Encounter for screening for cardiovascular disorders
CPT/HCPCS: 36415; 80053; 80061; 82043; 82570; 83036; 84439; 84443; 85025

== ENCOUNTER 2024-04-24 09:13 | Outpatient (AMB) | payer OTHER, SELFPAY ==
--- NOTE | 2024-04-24 09:40 | MHC.PC.OV ---
Vital Signs 04/24/24 09:42 Height 5 ft 3 in Weight 310 lb BMI 54.9 BP 110/70 Blood Pressure Location Lt brachial Position Sitting Respiration 20 Pulse 80 Pulse Source Pulse Oximeter Temp 98.5 F Temp Source Oral Pulse Oximetry (%) 96 Oxygen Delivery Method Room Air Intake Visit Reasons: 3 months f/up Intake Note: Pt is here today for 3 months follow up visit. Allergies Sulfa (Sulfonamide Antibiotics) Allergy (Unknown, Verified 04/24/24 09:45) rash all over body adhesive tape Allergy (Unknown, Uncoded 04/24/24 09:45) burn trent Erythromycin Allergy (Unknown, Uncoded 04/24/24 09:45) vomiting Medication List - Last Reconciled 04/24/24 by Angella Moreno MD albuterol sulfate 90 mcg/actuation 1 inh inhalation QID PRN citalopram 40 mg PO DAILY metformin ER 1,500 mg (2 x 750 mg) PO DAILY Tobacco use date assessed: 04/24/24 Dental Screening Dental Screen Date: 04/24/24 Did you have a dental visit in the last 12 months?: Yes Did you have a dental problem in the last 6 months where you did not have access to dental care?: No Was dental information given to patient?: Patient has dentist HPI 3 months f/up HPI Details Patient presents for the follow-up of type 2 diabetes and chronic anxiety stable on current medications. Patient had an episode of abdominal pain, went to [facility] ER had a CT of the abdomen which showed enlarged liver and spleen but no acute abnormalities. 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 She will call the office and inquire about the test [facility] Medical History Anxiety Overweight PCOS (polycystic ovarian syndrome) Sleep apnea Hyperglycemia Annual physical exam Surgical History Hx of section Hx of kidney removal History of repair of ACL Family History Father No problems noted. Mother Breast cancer Social History Housing: House Alcohol intake: never Patient Tobacco Use Status: Former Tobacco user (10 years ago ) Years Smoked: 3-4 years e-Cigarette/Vaping Use: Never Used service: No Current occupational status: employed Cognitive needs: No Hearing needs: No Vision needs: Yes Questionnaire PHQ-9 Over the last 2 weeks, how often have you been bothered by any of the following problems? 1. Little interest or pleasure in doing things: not at all 2. Feeling down, depressed, or hopeless: several days 3. Trouble falling or staying asleep, or sleeping too much: more than half the days 4. Feeling tired or having little energy: several days 5. Poor appetite or overeating: several days 6. Feeling bad about yourself - or that you are a failure or have let yourself or your family down: several days 7. Trouble concentrating on things, such as reading the newspaper or watching television: not at all 8. Moving or speaking so slowly that other people could have noticed. Or the opposite - being so fidgety or restless that you have been moving around a lot more than usual: not at all 9. Thoughts that you would be better off or of hurting yourself in some way: not at all Total score: 6 Depression Screening Interpretation: Negative Depression Screening Done: Yes 91342 - PHQ-9 Billing: Yes Source: Developed by Drs. Juan C Bah, Lucy Keith, Thomas Khan and colleagues, with an educational ammy from [employer]. Thrive Questionnaire Date Thrive assessed: 04/24/24 I am a: Patient What is your living situation today?: I have a steady place to live Within the past 12 months, did the food you bought not last and you didn't have the money to get more?: Never true Within the past 12 months, did you worry whether your food would run out before you got money to buy more?: Never true Do you have trouble paying for medicines?: No Do you have trouble getting transportation to medical appointments?: No Do you have trouble paying your heating and electricity bill?: No Do you have trouble taking care of your child, family member or friend?: No Do you have trouble with day-to-day activities such as bathing, preparing meals, shopping, managing finances, etc.?: No Are you currently unemployed and looking for a job?: No Are you interested in more education?: No Please select the resources that you would like help with: None Currently or been in a relationship where the following occur: No concerns reported THRIVE Score: 0 AUDIT C Alcohol Use Questionnaire (AUDIT-C) 1. How often do you have a drink containing alcohol?: Never 3. How often do you have six or more drinks on one occasion?: Never Total Score: 0 EFFIE-7 AMB Questionnaire EFFIE-7 Date EFFIE - 7 assessed: 04/24/24 Feeling nervous, anxious, or on edge: 1 = Several days Not being able to stop or control worryin = Several days Worrying too much about different things: 1 = Several days Trouble relaxin = Several days Being so restless that it is hard to sit still: 0 = Not at all Becoming easily annoyed or irritable: 2 = More than half the days Feeling afraid as if something awful might happen: 0 = Not at all Total EFFIE-7 score (0-4 normal; 5-9 mild; 10-14 moderate; 15-21 severe): 6 Source: Developed by Drs. Juan C Bah, Lucy Keith, Thomas Khan and colleagues, with an educational ammy from [employer]. EFFIE-7 Assessment Billing EFFIE-7 Assessment Tool: EFFIE-7 Assessment 77311 Review of Systems Const All systems reviewed & are unremarkable except as noted in HPI and below Eyes Reports no additional complaints ENT Reports no additional complaints Card Reports no additional complaints Resp Reports no additional complaints GI Reports no additional complaints Reports no additional complaints Physical exam (Primary Care) Vital Signs: Last Vital Signs Temp 98.5 F 04/24/24 09:42 Pulse 80 04/24/24 09:42 Resp 20 04/24/24 09:42 BP 110/70 04/24/24 09:42 Pulse Ox 96 04/24/24 09:42 Oxygen Delivery Method Room Air 04/24/24 09:42 BMI result Body Mass Index 54.9 Tobacco/Smoking Status: Tobacco use Status Tobacco use date assessed 04/24/24 04/24/24 09:44 Patient Tobacco Use Status Former Tobacco user (10 04/24/24 09:40 years ago ) e-Cigarette/Vaping Use Never Used 04/24/24 09:40 Depression Screening Interpretation: Negative Thrive Assessment: Date of Thrive Assessment Date Thrive assessed 04/24/24 04/24/24 09:47 Currently or been in a relationship where the following occur: No concerns reported Const General: no acute distress HENMT Head: Yes normal to inspection Mouth: Normal oral and palatal mucosa present Eyes General: appearance normal, both eyes and all related structures Neck Neck: Yes no lymphadenopathy and Yes supple Resp Effort & Inspection: normal respiratory effort Auscultation: clear to auscultation bilaterally Cardio Rhythm: regular rhythm Heart sounds: S1 normal heart sound present and S2 normal heart sound present GI Inspection: Yes normal to inspection Palpation (GI): Soft to palpation Percussion: Yes normal to percussion Auscultation: normal bowel sounds Coding Level of Care Code Est Pt Level 4 (22290) Diagnoses Overweight E66.3 DM type 2 (diabetes mellitus, type 2) E11.9 Enlarged liver R16.0 Additional Codes EFFIE-7 Assessment Billing - EFFIE-7 Assessment Tool: EFFIE-7 Assessment 87288 ([id number]) PHQ-9 - 88998 - PHQ-9 Billing: Yes ([id number]) Assessment & Plan Assessment & Plan (1) Overweight: Code(s): E66.3 - Overweight Category: Medical Plan: Decreasing caloric intake increasing physical activity discussed with the patient (2) DM type 2 (diabetes mellitus, type 2): Code(s): E11.9 - Type 2 diabetes mellitus without complications Category: Medical Plan: A1c is down to 5.9 from 7.2. Patient has been following ADA diet decreasing caloric in taking metformin and trying to exercise. Ozempic 0.25 mg weekly will be added to metformin patient will follow-up in 3 months (3) Enlarged liver: Comment: CT abd/pelvis 04/2024 [facility] showed enlarged liver and spleen Code(s): R16.0 - Hepatomegaly, not elsewhere classified Category: Medical Plan: Decreasing caloric intake and simple carbohydrates discussed with the patient. Obtain liver and spleen ultrasound in 3 months to monitor Orders: Orders Lipid Panel 3 Months E11.9 - Type 2 diabetes mellitus without complications, E66.3 - Overweight Microalbumin, Random (w Creat) 3 Months E11.9 - Type 2 diabetes mellitus without complications, E66.3 - Overweight US abdomen limited 3 Months R16.0 - Hepatomegaly, not elsewhere classified Hemoglobin A1c 3 Months E11.9 - Type 2 diabetes mellitus without complications Comprehensive [place]. Panel Fast 3 Months E11.9 - Type 2 diabetes mellitus without complications, E66.3 - Overweight Complete Blood Count Auto Diff 3 Months E11.9 - Type 2 diabetes mellitus without complications, E66.3 - Overweight Medications: New Ozempic (semaglutide) 0.25 mg (0.368 mL) subcut QWEEK 3 mL 2RF NS Refilled citalopram 40 mg PO DAILY 90 tabs 3RF metformin ER 1,500 mg (2 x 750 mg) PO DAILY 180 tabs 3RF
[2024-04-24 09:42] VITALS: BP 110/70; PULSE 80; RESP 20; TEMP 36.9; O2SAT 96; BMI 54.9
== END 2024-04-24 10:16 | disposition home or self-care (01) ==
PROVIDERS: PCP Internal Medicine; Visit Provider Internal Medicine
DX: E66.3 Overweight (principal); E11.9 Type 2 diabetes mellitus without complications; R16.0 Hepatomegaly, not elsewhere classified

== ENCOUNTER → 2024-04-24 09:13 | Outpatient (BNVA) | payer OTHER, SELFPAY | PROVIDERS: PCP Internal Medicine; Visit Provider Internal Medicine | DX: E66.3 Overweight (principal); Z68.43 Body mass index [BMI] 50.0-59.9, adult; E11.9 Type 2 diabetes mellitus without complications; R16.0 Hepatomegaly, not elsewhere classified; F41.9 Anxiety disorder, unspecified; Z79.84 Long term (current) use of oral hypoglycemic drugs | CPT/HCPCS: 96127 ==

== ENCOUNTER 2024-07-11 08:07 | Outpatient (REF) | payer OTHER, SELFPAY ==
--- NOTE | ~2024-07-11 | US_ITS ---
EXAMINATION: US ABDOMEN LIMITED HISTORY: R16.0 - Hepatomegaly, not elsewhere classified TECHNIQUE: Real-time grayscale ultrasound imaging of the right upper quadrant was performed and images were reviewed. COMPARISON: There are no prior studies for comparison. FINDINGS: Liver: The right lobe of the liver measures 22.0 cm in size. The left lobe of the liver measures 19.1 cm in size. The liver demonstrates increased echotexture, consistent with steatosis. No focal mass or intrahepatic biliary ductal dilatation is identified. There is normal hepatopedal flow in the portal vein. Gallbladder and biliary tree: The gallbladder is unremarkable, without evidence of calculi, wall thickening, or pericholecystic fluid. There is no sonographic King sign. The common bile duct is normal in caliber measuring 4 mm. Right Kidney: The patient is status post right nephrectomy. Pancreas: The pancreatic head, neck, and body are unremarkable. The pancreatic tail is obscured by bowel gas. Abdominal aorta and inferior vena cava: The visualized portions of the abdominal aorta and inferior vena cava are normal in caliber. There is no free fluid in the right upper quadrant. US/US abdomen limited IMPRESSION: Hepatomegaly and hepatic steatosis. Electronically signed by: Juan C Mabry MD 07/11/2024 08:37 AM EDT
[2024-07-11 10:29] LABS: MANUAL DIFF FLAG NO
[2024-07-11 10:43] LABS: Basophils Percent Auto 0.7 % (0-2); Eosinophils Absolute Auto 0.2 X10*3/uL (0.0-0.4); Eosinophils Percent Auto 2.7 % (0-4); Hematocrit 36.9 % (37.0-47.0); Hemoglobin 12.1 g/dl (12.0-16.0); Imm Gran Abs Auto 0.03 X10*3/uL (0.00-0.03); Imm Gran Pct Auto 0.5 % (0.0-0.4); Lymphocytes Absolute Auto 1.8 X10*3/uL (1.2-4.9); Lymphocytes Percent Auto 29.6 % (20-40); Mean Corpuscular HGB Conc 32.8 g/dl (31.0-35.0); Mean Corpuscular Hemoglobin 27.7 pg (27.0-33.0); Mean Corpuscular Volume 84.4 fL (80.0-98.0); Mean Platelet Volume 10.3 fL (9.4-12.3); Monocytes Absolute Auto 0.2 X10*3/uL (0.1-1.2); Neutrophils Absolute Auto 3.7 x10*3/uL (2.0-8.3); Neutrophils Percent Auto 62.5 % (45-73); Platelet Count 195 X10*3/uL (160-400); Red Blood Count 4.37 X10*6/uL (4.20-5.50)
[2024-07-11 10:45] LABS: Estimated Average Glucose 114 mg/dL; Hemoglobin A1c % 5.6 % (<6.0); Total Hemoglobin (HGBA1C) 3114.4113 umol/L
[2024-07-11 11:13] LABS: Alanine Aminotransferase 44 U/L (0-31); Albumin Level 4.2 g/dL (3.5-5.0); Alkaline Phosphatase 116 U/L (39-117); Anion Gap 15 (12-20); Aspartate Amino Transferase 51 U/L (5-31); Bilirubin Total 0.6 mg/dL (0.0-1.0); Blood Urea Nitrogen 15 mg/dL (9-16); Carbon Dioxide 24 mmol/L (22-29); Chloride 106 mmol/L (96-108); Cholesterol 149 mg/dL (<200); Estimated Glomerular Filt Rate > 60; Glucose Fasting 132 mg/dL (60-99); Potassium 4.1 mmol/L (3.3-5.1); Sodium 141 mmol/L (135-145); Total Protein 7.5 g/dL (6.5-8.0); Triglycerides 115 mg/dL (<150)
[2024-07-11 11:43] LABS: HDL Cholesterol 42 mg/dL (>40); LDL Cholesterol Calculated 84 mg/dL (<100); TSH reflex Free T4 1.76 uIU/mL (0.32-4.0)
== END 2024-07-11 08:08 | disposition home or self-care (01) ==
LOC: HO.HMGCX 08:07
PROVIDERS: PCP Internal Medicine; Visit Provider Internal Medicine
DX: R16.0 Hepatomegaly, not elsewhere classified (principal); E66.3 Overweight; E11.9 Type 2 diabetes mellitus without complications; E03.9 Hypothyroidism, unspecified
CPT/HCPCS: 36415; 76705; 80053; 80061; 82043; 82570; 83036; 84443; 85025

== ENCOUNTER → 2024-07-11 08:12 | Outpatient (BNV) | payer OTHER, SELFPAY | PROVIDERS: PCP Internal Medicine; Visit Provider Radiology Diagnostic Radiology | DX: R16.0 Hepatomegaly, not elsewhere classified (principal) | CPT/HCPCS: 76705 ==

== ENCOUNTER 2024-08-14 10:40 | Outpatient (REF) | payer OTHER, SELFPAY ==
--- NOTE | ~2024-08-14 | XR_ITS ---
EXAMINATION: XR BILATERAL HIPS AP AND FROG-LEG CLINICAL INFORMATION: M54.30 - Sciatica, unspecified side COMPARISON: None available. TECHNIQUE: AP view and frog-leg views of each hip were obtained. FINDINGS: LEFT HIP: There is borderline axial joint space narrowing. There is no sclerosis or degenerative cystic change. Left SI joint demonstrates triangular sclerotic changes in the iliac bone likely osteitis condensans ilii. Pubic symphysis demonstrates moderate sclerosis with degenerative cystic change, inferior right. RIGHT HIP: Joint spaces preserved. There are no osteophytes involving the joint. Minimal enthesophytes are noted along greater trochanter. SI joint demonstrates triangular sclerotic changes in the iliac bone likely osteitis condensans ilii. XR/XR hips BLADIMIR min 3V IMPRESSION: Osteitis condensans ilii. Mild degenerative changes of the pubic symphysis joint. Unremarkable hips. Electronically signed by: Rod Lizama MD 08/14/2024 01:13 PM EDT
--- NOTE | ~2024-08-14 | XR_ITS ---
EXAMINATION: XR LUMBOSACRAL SPINE CLINICAL INFORMATION: M54.30 - Sciatica, unspecified side COMPARISON: None available. TECHNIQUE: Three views of the lumbosacral spine. FINDINGS: There are 5 nonrib-bearing lumbar segments. T12-L1: Unremarkable L1-2: Unremarkable L2-3: There is minimal disc space narrowing. L4: There is mild to moderate disc space narrowing with endplate osteophytes. There is facet sclerosis and osteophytes. L4-5: There is moderate disc space narrowing with endplate sclerosis and osteophytes. There is facet sclerosis and osteophytes L5-S1: There is severe disc space narrowing with facet and endplate sclerosis and osteophytes. XR/XR lumbar spine 2-3V IMPRESSION: Multilevel degenerative disc disease and facet osteoarthritis is most pronounced at L4-5 and L5-S1. IMPRESSION: Unremarkable examination. Electronically signed by: Rod Lizama MD 08/14/2024 01:15 PM EDT
== END 2024-08-14 10:41 | disposition home or self-care (01) ==
LOC: HO.HMGCX 10:40
PROVIDERS: PCP Internal Medicine; Visit Provider Internal Medicine
DX: M54.30 Sciatica, unspecified side (principal); M25.552 Pain in left hip; M25.551 Pain in right hip; E11.9 Type 2 diabetes mellitus without complications; F41.9 Anxiety disorder, unspecified
CPT/HCPCS: 72100; 73522; 96127

== ENCOUNTER 2024-08-14 10:40 | Outpatient (AMB) | payer OTHER, SELFPAY ==
[2024-08-14 10:54] VITALS: BP 120/70; PULSE 94; RESP 18; TEMP 36.8; O2SAT 97; BMI 53.7
--- NOTE | 2024-08-14 10:54 | A.OFFPC_ITS ---
Vital Signs 08/14/24 10:54 Height 5 ft 3 in Weight 303 lb BMI 53.7 BP 120/70 Blood Pressure Location Lt brachial Position Sitting Respiration 18 Pulse 94 Pulse Source Pulse Oximeter Temp 98.2 F Temp Source Oral Pulse Oximetry (%) 97 Oxygen Delivery Method Room Air Intake Visit Reasons: 3 months f/up Intake Note: Pt is here today for 3 months follow up visit. Allergies Sulfa (Sulfonamide Antibiotics) Allergy (Unknown, Verified 08/14/24 11:25) rash all over body adhesive tape Allergy (Unknown, Uncoded 08/14/24 11:25) burn trent Erythromycin Allergy (Unknown, Uncoded 08/14/24 11:25) vomiting Medication List - Last Reconciled 08/14/24 by Angella Moreno MD albuterol sulfate 90 mcg/actuation 1 inh inhalation QID PRN citalopram 40 mg PO DAILY metformin ER 1,500 mg (2 x 750 mg) PO DAILY Ozempic (semaglutide) 0.25 mg (0.368 mL) subcut QWEEK NS Tobacco use date assessed: 08/14/24 Dental Screening Dental Screen Date: 08/14/24 Did you have a dental visit in the last 12 months?: Yes Did you have a dental problem in the last 6 months where you did not have access to dental care?: No Was dental information given to patient?: Patient has dentist HPI 3 months f/up HPI Details Pt presents for the follow-up. She complains of persistent right lower extremity pain radiating from lateral thigh down to her foot worse when walking or sitting getting worse over the last 3 months. Patient denies any weakness in extremity. She reports intermittent tingling sensation in her right foot. Type 2 diabetes is better controlled. Chronic anxiety stable on citalopram [facility] Medical History (Updated 08/14/24 @ 11:57 by Angella Moreno MD) Hx of screening mammography Adams syndrome Anxiety Overweight PCOS (polycystic ovarian syndrome) Sleep apnea Hyperglycemia Annual physical exam Surgical History (Updated 08/14/24 @ 11:50 by Angella Moreno MD) Hx of colonoscopy Hx of section Hx of kidney removal History of repair of ACL Family History Father No problems noted. Mother Breast cancer Social History Housing: House Alcohol intake: never Patient Tobacco Use Status: Former Tobacco user (10 years ago ) Years Smoked: 3-4 years e-Cigarette/Vaping Use: Never Used service: No Current occupational status: employed Cognitive needs: No Hearing needs: No Vision needs: Yes Questionnaire PHQ-9 Over the last 2 weeks, how often have you been bothered by any of the following problems? 1. Little interest or pleasure in doing things: not at all 2. Feeling down, depressed, or hopeless: not at all 3. Trouble falling or staying asleep, or sleeping too much: several days 4. Feeling tired or having little energy: several days 5. Poor appetite or overeating: not at all 6. Feeling bad about yourself - or that you are a failure or have let yourself or your family down: not at all 7. Trouble concentrating on things, such as reading the newspaper or watching television: not at all 8. Moving or speaking so slowly that other people could have noticed. Or the opposite - being so fidgety or restless that you have been moving around a lot more than usual: not at all 9. Thoughts that you would be better off or of hurting yourself in some way: not at all Total score: 2 Depression Screening Interpretation: Negative Depression Screening Done: Yes 22359 - PHQ-9 Billing: Yes Source: Developed by Drs. Juan C Bah, Lucy Keith, Thomas Khan and colleagues, with an educational ammy from [employer] Thrive Questionnaire Date Thrive assessed: 04/17/24 I am a: Patient What is your living situation today?: I have a steady place to live Within the past 12 months, did the food you bought not last and you didn't have the money to get more?: Never true Within the past 12 months, did you worry whether your food would run out before you got money to buy more?: Never true Do you have trouble paying for medicines?: No Do you have trouble getting transportation to medical appointments?: No Do you have trouble paying your heating and electricity bill?: No Do you have trouble taking care of your child, family member or friend?: No Do you have trouble with day-to-day activities such as bathing, preparing meals, shopping, managing finances, etc.?: No Are you currently unemployed and looking for a job?: No Are you interested in more education?: No Please select the resources that you would like help with: None Currently or been in a relationship where the following occur: No concerns reported THRIVE Score: 0 EFFIE-7 AMB Questionnaire EFFIE-7 Date EFFIE - 7 assessed: 04/24/24 Source: Developed by Drs. Juan C Bah, Lucy Keith, Thomas Khan and colleagues, with an educational ammy from [employer] Review of Systems Const All systems reviewed & are unremarkable except as noted in HPI and below Card Reports no additional complaints Resp Reports no additional complaints GI Reports no additional complaints Reports no additional complaints Physical exam (Primary Care) Vital Signs: Last Vital Signs Temp 98.2 F 08/14/24 10:54 Pulse 94 08/14/24 10:54 Resp 18 08/14/24 10:54 BP 120/70 08/14/24 10:54 Pulse Ox 97 08/14/24 10:54 Oxygen Delivery Method Room Air 08/14/24 10:54 BMI result Body Mass Index 53.7 Tobacco/Smoking Status: Tobacco use Status Tobacco use date assessed 08/14/24 08/14/24 11:09 Patient Tobacco Use Status Former Tobacco user (10 08/14/24 10:54 years ago ) e-Cigarette/Vaping Use Never Used 08/14/24 10:54 PHQ-9: PHQ-9 Score PHQ-9: Total score 2 08/14/24 10:54 Depression Screening Interpretation: Negative Thrive Assessment: Date of Thrive Assessment Date Thrive assessed 04/17/24 08/14/24 10:54 Currently or been in a relationship where the following occur: No concerns reported Const General: no acute distress Eyes General: appearance normal, both eyes and all related structures Neck Other: Decreasing to motion C-spine paraspinal tenderness bilaterally Neck: Yes no lymphadenopathy and Yes supple Resp Effort & Inspection: normal respiratory effort Auscultation: clear to auscultation bilaterally Cardio Rhythm: regular rhythm Heart sounds: S1 normal heart sound present and S2 normal heart sound present GI Inspection: Yes normal to inspection Palpation (GI): Soft to palpation Percussion: Yes normal to percussion Auscultation: normal bowel sounds Back/Spine/Pelvis Other: Paraspinal tenderness in lower lumbar region right more than left, straight leg rising 45 degrees on the right 90 degrees on the left, there is decreased range of motion both hips Coding Level of Care Code Est Pt Level 4 (99726) Diagnoses Sciatica M54.30 DM type 2 (diabetes mellitus, type 2) E11.9 Hip pain, bilateral M25.551; M25.552 Anxiety F41.9 Additional Codes PHQ-9 - 24967 - PHQ-9 Billing: Yes ([id number]) Assessment & Plan Assessment & Plan (1) Sciatica: Code(s): M54.30 - Sciatica, unspecified side Category: Medical Plan: For chronic sciatica check x-ray of lumbar spine both hips and referred to physical therapy. Meloxicam and baclofen prescribed (2) DM type 2 (diabetes mellitus, type 2): Code(s): E11.9 - Type 2 diabetes mellitus without complications Category: Medical Plan: A1c is down to 5.6, or Ozempic will be increased to 1 mg a day patient will continue metformin ADA diet increase exercise and decreasing caloric intake. Follow-up in 3 months with a fasting labs before (3) Hip pain, bilateral: Code(s): M25.551 - Pain in right hip; M25.552 - Pain in left hip Category: Medical Plan: For bilateral hip pain obtain x-rays (4) Anxiety: Code(s): F41.9 - Anxiety disorder, unspecified Category: Medical Plan: Continue citalopram Orders: Orders PT Evaluation and Treatment Today M54.30 - Sciatica, unspecified side XR hips BLADIMIR min 3V Today M25.551 - Pain in right hip, M25.552 - Pain in left hip, M54.30 - Sciatica, unspecified side Lipid Panel 3 Months E11.9 - Type 2 diabetes mellitus without complications, Z00.00 - Encounter for general adult medical examination without abnormal findings XR lumbar spine 2-3V Today M25.551 - Pain in right hip, M25.552 - Pain in left hip, M54.30 - Sciatica, unspecified side Complete Blood Count Auto Diff 3 Months E11.9 - Type 2 diabetes mellitus without complications, Z00.00 - Encounter for general adult medical examination without abnormal findings Comprehensive [place]. Panel Fast 3 Months E11.9 - Type 2 diabetes mellitus without complications, Z00.00 - Encounter for general adult medical examination without abnormal findings Hemoglobin A1c 3 Months E11.9 - Type 2 diabetes mellitus without complications, Z00.00 - Encounter for general adult medical examination without abnormal findings Microalbumin, Random (w Creat) 3 Months E11.9 - Type 2 diabetes mellitus without complications, Z00.00 - Encounter for general adult medical examination without abnormal findings TSH reflex Free T4 3 Months E11.9 - Type 2 diabetes mellitus without complications, Z00.00 - Encounter for general adult medical examination without abnormal findings Medications: New meloxicam 15 mg PO DAILY 10 tabs 0RF Ozempic (semaglutide) 1 mg (0.75 mL) subcut QWEEK 9 mL 0RF NS baclofen 10 mg PO BEDTIME 30 tabs 0RF Refilled metformin ER 1,500 mg (2 x 750 mg) PO DAILY 180 tabs 0RF Discontinued Ozempic (semaglutide) Discontinued Reason: Doctor's Order 0.25 mg (0.368 mL) subcut QWEEK 3 mL 2RF NS
== END 2024-08-14 12:05 | disposition home or self-care (01) ==
LOC: HO.HMCC 10:41
PROVIDERS: PCP Internal Medicine; Visit Provider Internal Medicine
DX: M54.30 Sciatica, unspecified side (principal); E11.9 Type 2 diabetes mellitus without complications; M25.551 Pain in right hip; M25.552 Pain in left hip; F41.9 Anxiety disorder, unspecified

== ENCOUNTER → 2024-08-14 12:12 | Outpatient (BNV) | payer OTHER, SELFPAY | PROVIDERS: PCP Internal Medicine; Visit Provider Radiology Diagnostic Radiology | DX: M85.38 Osteitis condensans, other site (principal); M51.360 Other intervertebral disc degeneration, lumbar region with discogenic back pain only; M47.816 Spondylosis without myelopathy or radiculopathy, lumbar region | CPT/HCPCS: 72100; 73522 ==

== ENCOUNTER 2024-12-08 09:55 | Outpatient (REF) | payer OTHER, SELFPAY ==
[2024-12-08 13:24] LABS: MANUAL DIFF FLAG NO
[2024-12-08 14:03] LABS: Hematocrit 38.6 % (37.0-47.0); Hemoglobin 12.3 g/dl (12.0-16.0); Imm Gran Abs Auto 0.02 X10*3/uL (0.00-0.03); Imm Gran Pct Auto 0.3 % (0.0-0.4); Lymphocytes Absolute Auto 2.0 X10*3/uL (1.2-4.9); Mean Corpuscular HGB Conc 31.9 g/dl (31.0-35.0); Mean Corpuscular Hemoglobin 27.6 pg (27.0-33.0); Mean Corpuscular Volume 86.5 fL (80.0-98.0); NRBC Abs Auto 0.020 X10*3/uL (0.0-0.012); NRBC Pct Auto 0.3 /100WBC (0.0-0.2); Platelet Count 192 X10*3/uL (160-400); Red Blood Count 4.46 X10*6/uL (4.20-5.50); White Blood Count 6.0 X10*3/uL (4.8-10.8)
[2024-12-08 14:33] LABS: Alanine Aminotransferase 28 U/L (0-31); Albumin Level 4.4 g/dL (3.5-5.0); Alkaline Phosphatase 118 U/L (39-117); Anion Gap 12 (12-20); Aspartate Amino Transferase 34 U/L (5-31); Blood Urea Nitrogen 10 mg/dL (9-16); Calcium 8.9 mg/dL (8.4-10.2); Carbon Dioxide 25 mmol/L (22-29); Chloride 107 mmol/L (96-108); Cholesterol 164 mg/dL (<200); Estimated Glomerular Filt Rate > 60; HDL Cholesterol 40 mg/dL (>40); Potassium 4.1 mmol/L (3.3-5.1); Sodium 140 mmol/L (135-145); Total Protein 7.7 g/dL (6.5-8.0); Triglycerides 113 mg/dL (<150)
[2024-12-08 14:39] LABS: Microalbum/Creatinine Ratio Ur 9.2 ug/mg cr (<30)
== END 2024-12-08 09:56 | disposition home or self-care (01) ==
LOC: HO.HMGCLDS 09:55
PROVIDERS: PCP Internal Medicine; Visit Provider Internal Medicine
DX: Z00.00 Encounter for general adult medical examination without abnormal findings (principal); E11.9 Type 2 diabetes mellitus without complications
CPT/HCPCS: 36415; 80053; 80061; 82043; 82570; 83036; 84443; 85025

== ENCOUNTER 2024-12-13 12:38 | Outpatient (AMB) | payer OTHER, SELFPAY ==
[2024-12-13 13:15] VITALS: BP 118/74; PULSE 70; RESP 16; TEMP 36.8; O2SAT 97; BMI 49.8
--- NOTE | 2024-12-13 13:15 | MHC.PC.OV ---
Vital Signs 12/13/24 13:15 Height 5 ft 3 in Weight 281 lb BMI 49.8 BP 118/74 Blood Pressure Location Lt brachial Position Sitting Respiration 16 Pulse 70 Pulse Source Pulse Oximeter Temp 98.3 F Temp Source Oral Pulse Oximetry (%) 97 Oxygen Delivery Method Room Air Intake Visit Reasons: 3m follow up Director Investment Banking Required: No Accompanied by: Self / Same As Patient Allergies Sulfa (Sulfonamide Antibiotics) Allergy (Unknown, Verified 12/13/24 13:16) rash all over body adhesive tape Allergy (Unknown, Uncoded 08/14/24 11:25) burn trent Erythromycin Allergy (Unknown, Uncoded 08/14/24 11:25) vomiting Medication List - Last Reconciled 12/13/24 by Angella Moreno MD albuterol sulfate 90 mcg/actuation 1 inh inhalation QID PRN baclofen 10 mg PO BEDTIME citalopram 40 mg PO DAILY meloxicam 15 mg PO DAILY metformin ER 750 mg PO DAILY Ozempic (semaglutide) 2 mg (0.75 mL) subcut QWEEK NS Tobacco use date assessed: 12/13/24 Dental Screening Dental Screen Date: 12/13/24 Did you have a dental visit in the last 12 months?: Yes Did you have a dental problem in the last 6 months where you did not have access to dental care?: No Was dental information given to patient?: Patient has dentist HPI 3m follow up HPI Details Patient presents for the follow-up of hyperglycemia,chronic anxiety morbid obesity. Patient lost 50 lb since January. She has been tolerating Ozempic well and denies side effects. Chronic anxiety stable on citalopram. Patient is having total hysterectomy for Adams syndrome PFSH Medical History Hx of screening mammography Adams syndrome Anxiety Overweight PCOS (polycystic ovarian syndrome) Sleep apnea Hyperglycemia Annual physical exam Surgical History Hx of colonoscopy Hx of section Hx of kidney removal History of repair of ACL Family History Father No problems noted. Mother Breast cancer Social History Housing: House Alcohol intake: never Patient Tobacco Use Status: Former Tobacco user (10 years ago ) Years Smoked: 3-4 years e-Cigarette/Vaping Use: Never Used service: No Current occupational status: employed Cognitive needs: No Hearing needs: No Vision needs: Yes Questionnaire PHQ-9 Over the last 2 weeks, how often have you been bothered by any of the following problems? 1. Little interest or pleasure in doing things: not at all 2. Feeling down, depressed, or hopeless: not at all 3. Trouble falling or staying asleep, or sleeping too much: several days 4. Feeling tired or having little energy: several days 5. Poor appetite or overeating: not at all 6. Feeling bad about yourself - or that you are a failure or have let yourself or your family down: not at all 7. Trouble concentrating on things, such as reading the newspaper or watching television: not at all 8. Moving or speaking so slowly that other people could have noticed. Or the opposite - being so fidgety or restless that you have been moving around a lot more than usual: not at all 9. Thoughts that you would be better off or of hurting yourself in some way: not at all Total score: 2 Depression Screening Interpretation: Negative Depression Screening Done: Yes 46140 - PHQ-9 Billing: Yes Source: Developed by Drs. Juan C Bah, Lucy Keith, Thomas Khan and colleagues, with an educational ammy from [employer]. Thrive Questionnaire Date Thrive assessed: 04/17/24 I am a: Patient What is your living situation today?: I have a steady place to live Within the past 12 months, did the food you bought not last and you didn't have the money to get more?: Never true Within the past 12 months, did you worry whether your food would run out before you got money to buy more?: Never true Do you have trouble paying for medicines?: No Do you have trouble getting transportation to medical appointments?: No Do you have trouble paying your heating and electricity bill?: No Do you have trouble taking care of your child, family member or friend?: No Do you have trouble with day-to-day activities such as bathing, preparing meals, shopping, managing finances, etc.?: No Are you currently unemployed and looking for a job?: No Are you interested in more education?: No Please select the resources that you would like help with: None Currently or been in a relationship where the following occur: No concerns reported THRIVE Score: 0 EFFIE-7 AMB Questionnaire EFFIE-7 Date EFFIE - 7 assessed: 12/13/24 Feeling nervous, anxious, or on edge: 0 = Not at all Not being able to stop or control worryin = Not at all Worrying too much about different things: 0 = Not at all Trouble relaxin = Not at all Being so restless that it is hard to sit still: 0 = Not at all Becoming easily annoyed or irritable: 0 = Not at all Feeling afraid as if something awful might happen: 0 = Not at all Total EFFIE-7 score (0-4 normal; 5-9 mild; 10-14 moderate; 15-21 severe): 0 Source: Developed by Drs. Juan C Bah, Lucy Keith, Thomas Khan and colleagues, with an educational ammy from [employer]. EFFIE-7 Assessment Billing EFFIE-7 Assessment Tool: EFFIE-7 Assessment 58307 Review of Systems Const All systems reviewed & are unremarkable except as noted in HPI and below Eyes Reports no additional complaints ENT Reports no additional complaints Card Reports no additional complaints Resp Reports no additional complaints GI Reports no additional complaints Reports no additional complaints Physical exam (Primary Care) Vital Signs: Last Vital Signs Temp 98.3 F 12/13/24 13:15 Pulse 70 12/13/24 13:15 Resp 16 12/13/24 13:15 BP 118/74 12/13/24 13:15 Pulse Ox 97 12/13/24 13:15 Oxygen Delivery Method Room Air 12/13/24 13:15 BMI result Body Mass Index 49.8 Tobacco/Smoking Status: Tobacco use Status Tobacco use date assessed 12/13/24 12/13/24 13:19 Patient Tobacco Use Status Former Tobacco user (12/13/24 13:19 years ago ) e-Cigarette/Vaping Use Never Used 12/13/24 13:19 PHQ-9: PHQ-9 Score PHQ-9: Total score 2 12/13/24 13:19 Depression Screening Interpretation: Negative Thrive Assessment: Date of Thrive Assessment Date Thrive assessed 04/17/24 12/13/24 13:19 Currently or been in a relationship where the following occur: No concerns reported Const General: no acute distress HENMT Head: Yes normal to inspection Face and sinus: Yes normal facial exam Neck Neck: Yes supple Resp Effort & Inspection: normal respiratory effort Auscultation: clear to auscultation bilaterally Cardio Rhythm: regular rhythm Heart sounds: S1 normal heart sound present and S2 normal heart sound present Coding Level of Care Code Est Pt Level 4 (81296) Diagnoses DM type 2 (diabetes mellitus, type 2) E11.9 Overweight E66.3 Anxiety F41.9 Additional Codes EFFIE-7 Assessment Billing - EFFIE-7 Assessment Tool: EFFIE-7 Assessment 70741 ([id number]) PHQ-9 - 62605 - PHQ-9 Billing: Yes ([id number]) Assessment & Plan Assessment & Plan (1) DM type 2 (diabetes mellitus, type 2): Code(s): E11.9 - Type 2 diabetes mellitus without complications Category: Medical Plan: A1c is 5.1. Patient will stop metformin and increase Ozempic to 2 mg weekly. ADA diet regular exercise and weight loss discussed with the patient. Follow-up in 3 months with a fasting labs (2) Overweight: Comment: BMI 49.8 12/2024 Code(s): E66.3 - Overweight Category: Medical Plan: Continue decreasing caloric intake increasing physical activity and weight loss discussed (3) Anxiety: Code(s): F41.9 - Anxiety disorder, unspecified Category: Medical Plan: Continue citalopram Orders: Orders Comprehensive [place]. Panel Fast 3 Months E11.9 - Type 2 diabetes mellitus without complications, E66.3 - Overweight Hemoglobin A1c 3 Months E11.9 - Type 2 diabetes mellitus without complications, E66.3 - Overweight Lipid Panel 3 Months E11.9 - Type 2 diabetes mellitus without complications, E66.3 - Overweight UA w Microscopic 3 Months E66.3 - Overweight Medications: New Ozempic (semaglutide) 2 mg (0.75 mL) subcut QWEEK 6 mL 1RF NS Changed From metformin ER 1,500 mg (2 x 750 mg) PO DAILY 180 tabs 0RF To metformin ER 750 mg PO DAILY 90 tabs 0RF Discontinued Ozempic (semaglutide) Discontinued Reason: Doctor's Order 1 mg (0.75 mL) subcut QWEEK 9 mL 1RF NS
== END 2024-12-13 13:42 | disposition home or self-care (01) ==
LOC: HO.HMCC 12:40
PROVIDERS: PCP Internal Medicine; Visit Provider Internal Medicine
DX: E11.9 Type 2 diabetes mellitus without complications (principal); E66.3 Overweight; F41.9 Anxiety disorder, unspecified

== ENCOUNTER → 2024-12-13 12:38 | Outpatient (BNVA) | payer OTHER, SELFPAY | PROVIDERS: PCP Internal Medicine; Visit Provider Internal Medicine | DX: E11.65 Type 2 diabetes mellitus with hyperglycemia (principal); F41.9 Anxiety disorder, unspecified; E66.01 Morbid (severe) obesity due to excess calories; Z68.42 Body mass index [BMI] 45.0-49.9, adult; E66.3 Overweight | CPT/HCPCS: 96127 ==

== ENCOUNTER 2025-01-31 14:04 | Outpatient (AMB) | payer OTHER, SELFPAY ==
[2025-01-31 14:08] VITALS: BP 108/88; PULSE 83; O2SAT 98; BMI 49.3
--- NOTE | 2025-01-31 14:08 | MHC.OFFVIS ---
Vital Signs 01/31/25 14:08 Height 5 ft 3 in Weight 278 lb 6 oz BMI 49.3 BP 108/88 Blood Pressure Location Rt brachial Position Sitting Pulse 83 Pulse Source Pulse Oximeter Pulse Oximetry (%) 98 Oxygen Delivery Method Room Air Intake Visit Reasons: 1 yr f/u -AIYANA Intake Note: Patient presents follow up AIYANA. Compliance in chart(90/90days, >=4hrs-100%, Average Usage-7hr 45min, Pressure-10cm, Med Leaks-0.5, AHI-0.6). Accompanied by: Self / Same As Patient Allergies Sulfa (Sulfonamide Antibiotics) Allergy (Unknown, Verified 01/31/25 14:11) rash all over body adhesive tape Allergy (Unknown, Uncoded 08/14/24 11:25) burn trent Erythromycin Allergy (Unknown, Uncoded 08/14/24 11:25) vomiting HPI Comments Details: 47 y/o female patient presents for follow up of AIYANA on CPAP. AIYANA compliance Report (10/2024 -01/2025) reviewed with pt. Total avg use is 90/90 days and >4 hours is 100%, daily avg use is 7 hours and 45min. Press avg [id number], Med Leaks 0.5cmH20 AHI is 0.6/hr She washes her mask, rinses hoses, changes filters and fills reservoir with water. Adams Syndrome followed by Oncologist at [facility], hysterectomy Jan 05, 2025 with h/o DVT. She sleeps better with CPAP, snores less feels well rested in the mornings. She has congestion due to head cold however improved now.Denies brain fog, her memory is stable. Her mood is less anxious, and well managed on celexa daily. She has RLS symptoms worse in the hands bilaterally, then her feet, with numbness, tingling, pins, and needles. She denies cramps spasms, peripheral neuropathy. She has pain in her r. hip, has l4/l5 degenerative disc, with radiating pain due to sciatica since the of her twins and this causes multiple arousals at night. She stretches her legs, feet and uses a pillow in between the knees. T2DM well managed with and metformin and started ozempic in June 0.5 subq, in September increased to 1.0mg subq and in Sept 2mg subq. She has lost over 50lbs over one year and walks daily. She has a good support network with her family, however lacks focus on her own self care, currently trying to find a therapist. Denies morning headaches and, parasomnias, smoking, MJ, edible use. PFSH Medical History Hx of screening mammography Adams syndrome Anxiety Overweight PCOS (polycystic ovarian syndrome) Sleep apnea Hyperglycemia Annual physical exam Surgical History Hx of hysterectomy Hx of colonoscopy Hx of section Hx of kidney removal History of repair of ACL Family History Father No problems noted. Mother Breast cancer Social History Housing: House Alcohol intake: never Patient Tobacco Use Status: Former Tobacco user (10 years ago ) Years Smoked: 3-4 years e-Cigarette/Vaping Use: Never Used service: No Current occupational status: employed Cognitive needs: No Hearing needs: No Vision needs: Yes Physical Exam Vital Signs: Last Vital Signs Pulse 83 01/31/25 14:08 Pulse Ox 98 01/31/25 14:08 Oxygen Delivery Method Room Air 01/31/25 14:08 BMI result Body Mass Index 49.3 Const General: cooperative, comfortable and no acute distress Nutritional Appearance: obese Orientation/consciousness: patient oriented x3 HEENT Face and sinus: Yes face symmetric Teeth and gingiva: other (mallampti score is) Eyes Pupils: Equal, round and reactive pupils present Neck Neck: Yes full ROM Resp Effort & Inspection: normal respiratory effort and able to speak in complete sentences Neuro Other: LUE with arms stretched out has mild tremor >RUE. General: patient oriented x3 and moves all extremities Cranial nerves: Yes Equal, round and reactive pupils present, Yes Normal accommodation reflex present, Yes Normal facial strength present, Yes Ability to bilaterally rotate head present and Yes Ability to bilaterally elevate shoulders present Cognition (Neuro): normal cognition Gait exam (Neuro): Normal gait present Motor exam (neuro): 5/5 motor strength present throughout and Normal motor muscle tone present throughout Psych Appearance: grossly normal Speech and movement: Normal speech and movement present Attitude: cooperative Thought process: Normal thought process present Thought content: Normal thought content present Results Reviewed Results Reviewed: AIYANA compliance Report (10/2024 -01/2025) reviewed with pt. Total avg use is 90/90 days and >4 hours is 100%, daily avg use is 7 hours and 45min. Press [id number], Med Leaks 0.5cmH20 AHI is 0.6/hr She washes her mask, rinses hoses, changes filters and fills reservoir with water. Adams Syndrome followed by Oncologist at [facility], hysterectomy Jan 05, 2025 with h/o DVT. Assessment & Plan Assessment & Plan (1) Sleep apnea: Comment: Severe degree of sleep apnea. The AHI was 106/hr and oxygen selma was 76%. Code(s): G47.30 - Sleep apnea, unspecified Category: Medical Qualifiers: Sleep apnea type: obstructive Qualified Code(s): G47.33 - Obstructive sleep apnea (adult) (pediatric) (2) Anxiety: Code(s): F41.9 - Anxiety disorder, unspecified Category: Medical (3) Overweight: Comment: BMI 49.8 12/2024 Code(s): E66.3 - Overweight Category: Medical Plan AIYANA compliance is reviewed with pt. she continues to be 100% compliant. BMI is 49% she is on ozempic, walking daily and motivated to lose weight. RLS / will monitor, Bilateral hand tingling, numbness, paresthesias, CTS? not bothersome. Labs reviewed with pt. Pt Education re: BMI elevation She is on ozempic, as you lose muscle mass, continue resistance band exercises to tone muscle. 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 DASH Diet for Hypertension, per [place] [employer] #1 modifiable risk factor to prevent heart attacks is blood pressure control.Mediterranean Diet- Cardiovascular Risk reduction, weight loss, and control of Type 2 diabetes mellitus. Blood Glucose Monitoring, A1C control for prevention of diabetes, nephropathy, neuropathy, retinopathy, f/u with pcp. F/U in one year or sooner as needed. Patient Instructions: Sleep Hygiene provided: set a scheduled bedtime and wake time to help regulate the circadian rhythm and balance the release of pituitary hormones. Sleep in a dark room, temperatures below 68 degrees, and no devices n bed. Limit caffeinated products 6 hours prior to bed, and limit fluids 2-4 hours prior to bed. Gentle night yoga, diffusing essential oils, and playing soft music can be relaxing. Coding Level of Care Code Est Pt Level 4 (65128) Diagnoses Obstructive sleep apnea syndrome G47.33 Sleep apnea type: obstructive Anxiety F41.9 Overweight E66.3
== END 2025-01-31 14:37 | disposition home or self-care (01) ==
LOC: HO.HSMC 14:05
PROVIDERS: PCP Internal Medicine; Visit Provider Physician Assistant Medical
DX: G47.33 Obstructive sleep apnea (adult) (pediatric) (principal); F41.9 Anxiety disorder, unspecified; E66.3 Overweight
CPT/HCPCS: 99214